=== PATIENT | male | born 1940 | race Caucasian/White ===

== ENCOUNTER 2017-12-06 08:41 | Inpatient (IN) | payer OTHER ==
[2017-12-06] MEDS: IV NORMAL SALINE 1000ML BAG 1,000 ML IV ×3 (09:25→18:31)
[2017-12-06 09:30] LABS: BASO # 0.1 x10^3/uL (0.0-0.2); BASO % 0 % (0-3); EOS % 0 % (0-3); HEMATOCRIT 38.3 % (39.0-53.0); HEMOGLOBIN 12.8 g/dL (13.0-17.5); LYMPH # 0.8 x10^3/uL (1.0-4.8); LYMPH % 4 % (24-48); MEAN CORPUSCULAR HEMOGLOBIN 32 pg (25-35); MEAN CORPUSCULAR HGB CONC 33 g/dL (31-37); MEAN CORPUSCULAR VOLUME 95 fL (79-100); MONO % 6 % (0-9); NEUT # 15.4 x10^3uL (1.8-7.7); NEUT % 90 % (31-73); PLATELET COUNT 121 x10^3/uL (140-400); RED BLOOD COUNT 4.04 x10^6/uL (4.30-5.70); RED CELL DISTRIBUTION WIDTH 14.7 % (11.5-14.5); WHITE BLOOD COUNT 17.2 x10^3/uL (4.0-11.0)
[2017-12-06 09:35] LABS: ADD MAN DIFF? YES
[2017-12-06 09:38] LABS: ANION GAP 5 (6-14); BLOOD UREA NITROGEN 26 mg/dL (8-26); BUN/CREATININE RATIO 20 (6-20); CALCIUM 9.5 mg/dL (8.5-10.1); CARBON DIOXIDE 30 mmol/L (21-32); CHLORIDE 105 mmol/L (98-107); CREATININE 1.3 mg/dL (0.7-1.3); GFR 53.3; GLUCOSE 169 mg/dL (70-99); POTASSIUM 4.2 mmol/L (3.5-5.1); SODIUM 140 mmol/L (136-145)
[2017-12-06 09:44] LABS: ALBUMIN 3.5 g/dL (3.4-5.0); ALK PHOS 56 U/L (46-116); ALT (SGPT) 31 U/L (16-63); AST (SGOT) 47 U/L (15-37); LIPASE 61 U/L (73-393); MAGNESIUM 1.8 mg/dL (1.8-2.4); TOTAL BILIRUBIN 1.8 mg/dL (0.2-1.0); TOTAL PROTEIN 6.9 g/dL (6.4-8.2)
[2017-12-06 09:46] LABS: TROPONINI 0.049 ng/mL (0.000-0.055)
[2017-12-06 09:52] LABS: CKMB MASS 2.5 ng/mL (0.0-3.6)
[2017-12-06 09:54] LABS: CKMB INDEX 0.1 % (0-4); CREATINE KINASE 1859 U/L (39-308)
[2017-12-06 10:00] LABS: INFLUENZA A PATIENT NEGATIVE (NEGATIVE); INFLUENZA B PATIENT NEGATIVE (NEGATIVE); OBC FLU VALID
[2017-12-06] MEDS ORDERED: CONTRAST GIVEN MC (11:00)
[2017-12-06] MEDS: FUROSEMIDE 20 MG/2 ML VIAL. IVP (11:18)
[2017-12-06] MEDS: IOHEXOL 300 MG/ML 100ML VIAL. IV (11:23)
[2017-12-06 11:47] LABS: % BANDS 17 % (0-9); % LYMPHS 1 % (24-48); % MONOS 7 % (0-10); % SEGS 75 % (35-66)
[2017-12-06 11:49] LABS: PLT ESTIMATE DECREASED (ADEQUATE)
[2017-12-06 12:17] LABS: BILIRUBIN,URINE NEGATIVE (NEG); CLARITY,URINE CLEAR; COLOR,URINE YELLOW; GLUCOSE,URINE NEGATIVE (NEG); NITRITE,URINE NEGATIVE (NEG); PH,URINE 5.5; PROTEIN,URINE NEGATIVE (NEG-TRACE)
[2017-12-06 12:50] LABS: BACTERIA,URINE 0 /HPF (0-FEW); RBC,URINE OCC /HPF (0-2); SQUAMOUS EPITHELIAL CELL,UR OCC /LPF; WBC,URINE OCC /HPF (0-4)
[2017-12-06] MEDS ORDERED: ONDANSETRON PF 4 MG/2 ML VIAL. IV ×2 (13:30→16:00)
[2017-12-06] MEDS ORDERED: DEXTROSE 50% 25 GM / 50ML DISP.SYRIN. IV (16:00)
[2017-12-06] MEDS ORDERED: hydrALAZINE 20 MG/ML VIAL. IVP (16:00)
[2017-12-06] MEDS ORDERED: traMADol 50 MG TABLET PO (16:00)
[2017-12-06] MEDS ORDERED: MORPHINE SULFATE 4 MG/ML DISP.SYRIN. IV (16:00)
[2017-12-06] MEDS: INSULIN ASPART 300 UNITS/3 ML INSULN.PEN SQ (17:00)
[2017-12-06] MEDS: ENOXAPARIN 40 MG/0.4 ML SYRINGE. SQ (18:32)
[2017-12-06 20:52] LABS: POC GLUCOSE 132 mg/dL (70-99)
[2017-12-06] MEDS ORDERED: metFORMIN 500 MG TABLET PO (21:00)
[2017-12-06] MEDS: LABETALOL HCL 200 MG TABLET PO (21:35)
[2017-12-06 22:28] LABS: INR 1.7 (0.8-1.1); PROTHROMBIN TIME PATIENT 18.7 SEC (11.7-14.0)
[2017-12-06] MEDS: ACETAMINOPHEN 325 MG TABLET. PO (23:21)
[2017-12-06] MEDS ORDERED: PIP/TAZO PER PHARMACY MC (23:30)
[2017-12-07] MEDS: IPRATRPIUM/ALBUTEROL 0.5/2.5MG 3 ML NEBU. NEB ×5 (00:07→19:59)
[2017-12-07] MEDS: MEROPENEM 500 MG in IV NORMAL SALINE 50ML 50 ML IV ×5 (00:10→23:45)
[2017-12-07] MEDS: VANCOMYCIN 2 GM in IV DEXTROSE 5 %-0.2 % NACL 500 ML IV (00:10)
[2017-12-07] MEDS: VANCOMYCIN PER PHARMACY MC ×2 (02:41→17:43)
[2017-12-07 06:36] LABS: ADD MAN DIFF? NO
[2017-12-07 06:43] LABS: BASO % 0 % (0-3); EOS % 0 % (0-3); HEMOGLOBIN 12.1 g/dL (13.0-17.5); LYMPH # 0.7 x10^3/uL (1.0-4.8); LYMPH % 7 % (24-48); MEAN CORPUSCULAR HEMOGLOBIN 32 pg (25-35); MEAN CORPUSCULAR HGB CONC 34 g/dL (31-37); MEAN CORPUSCULAR VOLUME 95 fL (79-100); MONO # 0.9 x10^3/uL (0.0-1.1); MONO % 8 % (0-9); NEUT # 8.8 x10^3uL (1.8-7.7); NEUT % 84 % (31-73); PLATELET COUNT 105 x10^3/uL (140-400); RED BLOOD COUNT 3.79 x10^6/uL (4.30-5.70); RED CELL DISTRIBUTION WIDTH 15.2 % (11.5-14.5); WHITE BLOOD COUNT 10.4 x10^3/uL (4.0-11.0)
[2017-12-07 06:53] LABS: ANION GAP 12 (6-14); BLOOD UREA NITROGEN 29 mg/dL (8-26); CALCIUM 8.6 mg/dL (8.5-10.1); CARBON DIOXIDE 27 mmol/L (21-32); CHLORIDE 104 mmol/L (98-107); CREATININE 1.4 mg/dL (0.7-1.3); GFR 48.9; GLUCOSE 133 mg/dL (70-99); POTASSIUM 3.7 mmol/L (3.5-5.1); SODIUM 143 mmol/L (136-145)
[2017-12-07 07:19] LABS: POC GLUCOSE 115 mg/dL (70-99)
[2017-12-07] MEDS: INSULIN ASPART 300 UNITS/3 ML INSULN.PEN SQ ×5 (08:00→21:47)
[2017-12-07] MEDS: DOCUSATE SODIUM 100 MG CAPSULE. PO (08:28)
[2017-12-07] MEDS: CYANOCOBALAMIN (VITAMIN B-12) 100 MCG TABLET PO (08:28)
[2017-12-07] MEDS: FUROSEMIDE 20 MG TABLET PO (08:29)
[2017-12-07] MEDS: LABETALOL HCL 200 MG TABLET PO ×2 (08:29→21:00)
[2017-12-07] MEDS: ASPIRIN CHEWABLE 81 MG TABLET. PO (08:30)
[2017-12-07] MEDS: LACTOBACILLUS RHAMNOSUS GG 1 CAPSULE. PO ×2 (08:30→21:30)
[2017-12-07] MEDS: LISINOPRIL 20 MG TABLET PO (08:30)
[2017-12-07 11:40] LABS: THYROID STIM HORMONE (TSH) 3.592 uIU/mL (0.358-3.74)
[2017-12-07 12:36] LABS: CHOLESTEROL 131 mg/dL (0-200); HDLC 31 mg/dL (40-60); LDLC 73 mg/dL (0-100); NON-HDL CHOLESTEROL 100 mg/dL (0-129); TRIGLYCERIDES 137 mg/dL (0-150); VLDLC 27 mg/dL (0-40)
[2017-12-07 12:37] LABS: CHOLESTEROL/HDL RATIO 4.2
[2017-12-07 12:46] LABS: LACTIC ACID 2.4 mmol/L (0.4-2.0)
[2017-12-07 12:52] LABS: POC GLUCOSE 151 mg/dL (70-99)
[2017-12-07] MEDS ORDERED: WARFARIN 7.5 MG TABLET. PO (16:00)
[2017-12-07 16:16] LABS: POC GLUCOSE 169 mg/dL (70-99)
[2017-12-07] MEDS: ACETAMINOPHEN 325 MG TABLET. PO (17:41)
[2017-12-07] MEDS: ENOXAPARIN 40 MG/0.4 ML SYRINGE. SQ (17:54)
[2017-12-07] MEDS: WARFARIN 7.5 MG TABLET. PO (17:55)
[2017-12-07 20:19] LABS: POC GLUCOSE 152 mg/dL (70-99)
[2017-12-07] MEDS: VANCOMYCIN 1.5 GM in IV DEXTROSE 5 %-0.2 % NACL 500 ML IV (22:29)
[2017-12-08 05:09] LABS: INR 1.6 (0.8-1.1); PROTHROMBIN TIME PATIENT 18.4 SEC (11.7-14.0)
[2017-12-08 05:22] LABS: ANION GAP 10 (6-14); BLOOD UREA NITROGEN 38 mg/dL (8-26); CALCIUM 8.6 mg/dL (8.5-10.1); CARBON DIOXIDE 27 mmol/L (21-32); CHLORIDE 102 mmol/L (98-107); CREATININE 1.5 mg/dL (0.7-1.3); GFR 45.1; GLUCOSE 133 mg/dL (70-99); MAGNESIUM 2.2 mg/dL (1.8-2.4); POTASSIUM 3.3 mmol/L (3.5-5.1); SODIUM 139 mmol/L (136-145)
[2017-12-08] MEDS: MEROPENEM 500 MG in IV NORMAL SALINE 50ML 50 ML IV ×3 (05:29→17:31)
[2017-12-08 05:36] LABS: CREATINE KINASE 1258 U/L (39-308)
[2017-12-08] MEDS: IPRATRPIUM/ALBUTEROL 0.5/2.5MG 3 ML NEBU. NEB ×4 (07:40→19:50)
[2017-12-08] MEDS: INSULIN ASPART 300 UNITS/3 ML INSULN.PEN SQ ×3 (08:00→17:39)
[2017-12-08 08:06] LABS: POC GLUCOSE 131 mg/dL (70-99)
[2017-12-08] MEDS: LISINOPRIL 20 MG TABLET PO (08:31)
[2017-12-08] MEDS: ASPIRIN CHEWABLE 81 MG TABLET. PO (08:31)
[2017-12-08] MEDS: CYANOCOBALAMIN (VITAMIN B-12) 100 MCG TABLET PO (08:31)
[2017-12-08] MEDS: LACTOBACILLUS RHAMNOSUS GG 1 CAPSULE. PO ×2 (08:31→21:25)
[2017-12-08] MEDS: LABETALOL HCL 200 MG TABLET PO ×2 (08:32→21:25)
[2017-12-08 11:24] LABS: POC GLUCOSE 175 mg/dL (70-99)
[2017-12-08] MEDS: VANCOMYCIN PER PHARMACY MC (14:09)
[2017-12-08] MEDS: POTASSIUM CHLORIDE 20 MEQ TABLET.ER. PO ×2 (14:58→17:00)
[2017-12-08] MEDS: IV NORMAL SALINE 1000ML BAG 1,000 ML IV (14:58)
[2017-12-08] MEDS ORDERED: WARFARIN 5 MG TABLET. PO (16:00)
[2017-12-08 16:36] LABS: POC GLUCOSE 158 mg/dL (70-99)
[2017-12-08] MEDS: ENOXAPARIN 40 MG/0.4 ML SYRINGE. SQ (17:31)
[2017-12-08] MEDS: WARFARIN 3 MG TABLET. PO (17:32)
[2017-12-08] MEDS ORDERED: ONDANSETRON ODT 4 MG TAB.RAPDIS. PO (19:30)
[2017-12-08] MEDS ORDERED: ONDANSETRON PF 4 MG/2 ML VIAL. IV (19:30)
[2017-12-08 22:42] LABS: VANC TR 11.7 mcg/mL (10.0-20.0)
[2017-12-08] MEDS: VANCOMYCIN 1.5 GM in IV DEXTROSE 5 %-0.2 % NACL 500 ML IV (22:57)
[2017-12-09] MEDS: VANCOMYCIN PER PHARMACY MC (00:05)
[2017-12-09 00:19] LABS: POC GLUCOSE 126 mg/dL (70-99)
[2017-12-09] MEDS: MEROPENEM 500 MG in IV NORMAL SALINE 50ML 50 ML IV ×5 (01:22→23:33)
[2017-12-09 05:07] LABS: ADD MAN DIFF? NO
[2017-12-09 05:19] LABS: BASO % 0 % (0-3); EOS # 0.8 x10^3/uL (0.0-0.7); EOS % 12 % (0-3); HEMATOCRIT 35.7 % (39.0-53.0); HEMOGLOBIN 12.1 g/dL (13.0-17.5); LYMPH # 0.9 x10^3/uL (1.0-4.8); LYMPH % 14 % (24-48); MEAN CORPUSCULAR HEMOGLOBIN 32 pg (25-35); MEAN CORPUSCULAR HGB CONC 34 g/dL (31-37); MEAN CORPUSCULAR VOLUME 94 fL (79-100); MONO # 0.7 x10^3/uL (0.0-1.1); MONO % 11 % (0-9); NEUT % 62 % (31-73); PLATELET COUNT 142 x10^3/uL (140-400); RED BLOOD COUNT 3.79 x10^6/uL (4.30-5.70); WHITE BLOOD COUNT 6.5 x10^3/uL (4.0-11.0)
[2017-12-09 05:30] LABS: INR 1.8 (0.8-1.1); PROTHROMBIN TIME PATIENT 19.8 SEC (11.7-14.0)
[2017-12-09 05:50] LABS: ANION GAP 12 (6-14); BLOOD UREA NITROGEN 34 mg/dL (8-26); CALCIUM 8.5 mg/dL (8.5-10.1); CARBON DIOXIDE 24 mmol/L (21-32); CHLORIDE 104 mmol/L (98-107); CREATINE KINASE 996 U/L (39-308); CREATININE 1.2 mg/dL (0.7-1.3); GFR 58.4; GLUCOSE 145 mg/dL (70-99); POTASSIUM 4.3 mmol/L (3.5-5.1); SODIUM 140 mmol/L (136-145)
[2017-12-09] MEDS: IPRATRPIUM/ALBUTEROL 0.5/2.5MG 3 ML NEBU. NEB ×4 (07:14→19:53)
[2017-12-09] MEDS: INSULIN ASPART 300 UNITS/3 ML INSULN.PEN SQ ×3 (08:00→17:04)
[2017-12-09 08:09] LABS: POC GLUCOSE 127 mg/dL (70-99)
[2017-12-09] MEDS: ASPIRIN CHEWABLE 81 MG TABLET. PO (08:52)
[2017-12-09] MEDS: CYANOCOBALAMIN (VITAMIN B-12) 100 MCG TABLET PO (08:52)
[2017-12-09] MEDS: LABETALOL HCL 200 MG TABLET PO ×2 (08:54→21:17)
[2017-12-09] MEDS: LISINOPRIL 20 MG TABLET PO (08:54)
[2017-12-09] MEDS: LACTOBACILLUS RHAMNOSUS GG 1 CAPSULE. PO ×2 (08:57→21:16)
[2017-12-09 11:58] LABS: POC GLUCOSE 149 mg/dL (70-99)
[2017-12-09] MEDS: WARFARIN 3 MG TABLET. PO (17:00)
[2017-12-09 20:39] LABS: POC GLUCOSE 158 mg/dL (70-99)
[2017-12-09 20:55] LABS: POC GLUCOSE 155 mg/dL (70-99)
[2017-12-10] MEDS: VANCOMYCIN 1.5 GM in IV DEXTROSE 5 %-0.2 % NACL 500 ML IV ×2 (00:09→18:19)
[2017-12-10 05:56] LABS: ADD MAN DIFF? NO
[2017-12-10 06:21] LABS: ALBUMIN 2.8 g/dL (3.4-5.0); ALBUMIN/GLOBULIN RATIO 0.8 (1.0-1.7); ALK PHOS 48 U/L (46-116); ALT (SGPT) 39 U/L (16-63); AST (SGOT) 42 U/L (15-37); BLOOD UREA NITROGEN 26 mg/dL (8-26); BUN/CREATININE RATIO 26 (6-20); CALCIUM 8.5 mg/dL (8.5-10.1); CARBON DIOXIDE 25 mmol/L (21-32); GFR 72.1; GLUCOSE 159 mg/dL (70-99); TOTAL BILIRUBIN 0.4 mg/dL (0.2-1.0); TOTAL PROTEIN 6.2 g/dL (6.4-8.2)
[2017-12-10 06:30] LABS: ANION GAP 9 (6-14); CHLORIDE 106 mmol/L (98-107); POTASSIUM 4.3 mmol/L (3.5-5.1); SODIUM 140 mmol/L (136-145)
[2017-12-10 06:30] LABS: CREATINE KINASE 611 U/L (39-308)
[2017-12-10 06:33] LABS: BASO % 0 % (0-3); EOS # 0.7 x10^3/uL (0.0-0.7); EOS % 12 % (0-3); HEMATOCRIT 33.7 % (39.0-53.0); HEMOGLOBIN 11.4 g/dL (13.0-17.5); LYMPH # 0.7 x10^3/uL (1.0-4.8); LYMPH % 13 % (24-48); MEAN CORPUSCULAR HEMOGLOBIN 32 pg (25-35); MEAN CORPUSCULAR HGB CONC 34 g/dL (31-37); MEAN CORPUSCULAR VOLUME 95 fL (79-100); MONO # 0.6 x10^3/uL (0.0-1.1); MONO % 10 % (0-9); NEUT # 3.6 x10^3uL (1.8-7.7); NEUT % 65 % (31-73); PLATELET COUNT 133 x10^3/uL (140-400); RED BLOOD COUNT 3.57 x10^6/uL (4.30-5.70); WHITE BLOOD COUNT 5.5 x10^3/uL (4.0-11.0)
[2017-12-10] MEDS: MEROPENEM 500 MG in IV NORMAL SALINE 50ML 50 ML IV ×3 (06:39→17:03)
[2017-12-10 06:54] LABS: INR 2.5 (0.8-1.1); PROTHROMBIN TIME PATIENT 25.3 SEC (11.7-14.0)
[2017-12-10] MEDS: IPRATRPIUM/ALBUTEROL 0.5/2.5MG 3 ML NEBU. NEB ×5 (07:34→22:20)
[2017-12-10 07:49] LABS: POC GLUCOSE 145 mg/dL (70-99)
[2017-12-10] MEDS: INSULIN ASPART 300 UNITS/3 ML INSULN.PEN SQ ×4 (08:00→22:35)
[2017-12-10] MEDS: ASPIRIN CHEWABLE 81 MG TABLET. PO (08:14)
[2017-12-10] MEDS: CYANOCOBALAMIN (VITAMIN B-12) 100 MCG TABLET PO (08:14)
[2017-12-10] MEDS: LACTOBACILLUS RHAMNOSUS GG 1 CAPSULE. PO ×2 (08:14→22:30)
[2017-12-10] MEDS: LABETALOL HCL 200 MG TABLET PO ×2 (08:15→22:30)
[2017-12-10] MEDS: LISINOPRIL 20 MG TABLET PO (08:15)
[2017-12-10] MEDS: guaiFENesin DM 200MG/20MG 10 ML SYRUP PO (08:44)
[2017-12-10] MEDS: BUDESONIDE 0.5 MG/2 ML NEBU. NEB ×2 (09:00→19:11)
[2017-12-10] MEDS: FUROSEMIDE 40 MG/4 ML VIAL. IVP (10:44)
[2017-12-10] MEDS: methylPREDNISolone SOD SUCC PF 125 MG/2 ML VIAL. IV ×3 (10:45→22:31)
[2017-12-10 11:17] LABS: POC GLUCOSE 167 mg/dL (70-99)
[2017-12-10] MEDS: VANCOMYCIN PER PHARMACY MC ×4 (11:26→11:51)
[2017-12-10 16:49] LABS: POC GLUCOSE 251 mg/dL (70-99)
[2017-12-10] MEDS ORDERED: MINERAL OIL/PETROLATUM,WHITE OPHTH OINT 3.5GM TUBE. OU (17:00)
[2017-12-10] MEDS: WARFARIN 4 MG TABLET. PO (17:03)
[2017-12-10] MEDS: POLYVINYL ALCOHOL 1.4% OPHTH SOLUTION 15ML BOTTLE. OU (18:18)
[2017-12-10 21:38] LABS: POC GLUCOSE 231 mg/dL (70-99)
[2017-12-11] MEDS: MEROPENEM 500 MG in IV NORMAL SALINE 50ML 50 ML IV ×4 (00:19→16:39)
[2017-12-11] MEDS: IPRATRPIUM/ALBUTEROL 0.5/2.5MG 3 ML NEBU. NEB ×5 (03:23→19:22)
[2017-12-11 05:21] LABS: ADD MAN DIFF? NO
[2017-12-11 05:27] LABS: BASO % 0 % (0-3); EOS % 0 % (0-3); HEMATOCRIT 32.9 % (39.0-53.0); HEMOGLOBIN 11.2 g/dL (13.0-17.5); LYMPH # 0.4 x10^3/uL (1.0-4.8); LYMPH % 8 % (24-48); MEAN CORPUSCULAR HEMOGLOBIN 32 pg (25-35); MEAN CORPUSCULAR HGB CONC 34 g/dL (31-37); MEAN CORPUSCULAR VOLUME 93 fL (79-100); MONO # 0.2 x10^3/uL (0.0-1.1); MONO % 3 % (0-9); NEUT # 4.5 x10^3uL (1.8-7.7); NEUT % 88 % (31-73); PLATELET COUNT 144 x10^3/uL (140-400); RED BLOOD COUNT 3.53 x10^6/uL (4.30-5.70); RED CELL DISTRIBUTION WIDTH 14.3 % (11.5-14.5); WHITE BLOOD COUNT 5.2 x10^3/uL (4.0-11.0)
[2017-12-11 05:32] LABS: INR 3.1 (0.8-1.1); PROTHROMBIN TIME PATIENT 29.9 SEC (11.7-14.0)
[2017-12-11 05:52] LABS: ALBUMIN 2.8 g/dL (3.4-5.0); ALBUMIN/GLOBULIN RATIO 0.8 (1.0-1.7); ALK PHOS 53 U/L (46-116); ALT (SGPT) 49 U/L (16-63); ANION GAP 10 (6-14); AST (SGOT) 47 U/L (15-37); BLOOD UREA NITROGEN 29 mg/dL (8-26); BUN/CREATININE RATIO 32 (6-20); CALCIUM 8.9 mg/dL (8.5-10.1); CARBON DIOXIDE 23 mmol/L (21-32); CHLORIDE 106 mmol/L (98-107); CREATININE 0.9 mg/dL (0.7-1.3); GFR 81.4; GLUCOSE 210 mg/dL (70-99); SODIUM 139 mmol/L (136-145); TOTAL BILIRUBIN 0.4 mg/dL (0.2-1.0); TOTAL PROTEIN 6.2 g/dL (6.4-8.2)
[2017-12-11] MEDS: methylPREDNISolone SOD SUCC PF 125 MG/2 ML VIAL. IV ×2 (06:03→14:00)
[2017-12-11] MEDS: BUDESONIDE 0.5 MG/2 ML NEBU. NEB ×2 (07:41→19:22)
[2017-12-11 07:48] LABS: POC GLUCOSE 185 mg/dL (70-99)
[2017-12-11] MEDS: CYANOCOBALAMIN (VITAMIN B-12) 100 MCG TABLET PO (09:20)
[2017-12-11] MEDS: ASPIRIN CHEWABLE 81 MG TABLET. PO (09:20)
[2017-12-11] MEDS: LABETALOL HCL 200 MG TABLET PO ×2 (09:21→20:43)
[2017-12-11] MEDS: LACTOBACILLUS RHAMNOSUS GG 1 CAPSULE. PO ×2 (09:21→20:42)
[2017-12-11] MEDS: LISINOPRIL 20 MG TABLET PO (09:21)
[2017-12-11] MEDS: INSULIN ASPART 300 UNITS/3 ML INSULN.PEN SQ ×3 (09:30→16:41)
[2017-12-11 11:25] LABS: POC GLUCOSE 230 mg/dL (70-99)
[2017-12-11] MEDS: VANCOMYCIN 1.5 GM in IV DEXTROSE 5 %-0.2 % NACL 500 ML IV (14:35)
[2017-12-11] MEDS: WARFARIN 3 MG TABLET. PO (15:39)
[2017-12-11 16:12] LABS: POC GLUCOSE 280 mg/dL (70-99)
[2017-12-11 21:38] LABS: POC GLUCOSE 153 mg/dL (70-99)
[2017-12-12] MEDS: MEROPENEM 500 MG in IV NORMAL SALINE 50ML 50 ML IV ×3 (00:23→12:32)
[2017-12-12] MEDS: IPRATRPIUM/ALBUTEROL 0.5/2.5MG 3 ML NEBU. NEB ×7 (04:00→23:48)
[2017-12-12 05:41] LABS: INR 4.3 (0.8-1.1); PROTHROMBIN TIME PATIENT 38.6 SEC (11.7-14.0)
[2017-12-12 05:42] LABS: VANC TR 16.1 mcg/mL (10.0-20.0)
[2017-12-12] MEDS: VANCOMYCIN PER PHARMACY MC ×2 (06:01→06:05)
[2017-12-12] MEDS: VANCOMYCIN 1.5 GM in IV DEXTROSE 5 %-0.2 % NACL 500 ML IV (06:31)
[2017-12-12] MEDS: BUDESONIDE 0.5 MG/2 ML NEBU. NEB ×2 (07:46→19:24)
[2017-12-12 07:48] LABS: POC GLUCOSE 146 mg/dL (70-99)
[2017-12-12] MEDS: INSULIN ASPART 300 UNITS/3 ML INSULN.PEN SQ ×4 (08:00→22:05)
[2017-12-12] MEDS: LACTOBACILLUS RHAMNOSUS GG 1 CAPSULE. PO ×2 (08:55→20:31)
[2017-12-12] MEDS: CYANOCOBALAMIN (VITAMIN B-12) 100 MCG TABLET PO (08:56)
[2017-12-12] MEDS: LABETALOL HCL 200 MG TABLET PO ×2 (08:56→20:31)
[2017-12-12] MEDS: LISINOPRIL 20 MG TABLET PO (08:56)
[2017-12-12] MEDS: ASPIRIN CHEWABLE 81 MG TABLET. PO (08:56)
[2017-12-12] MEDS: methylPREDNISolone SOD SUCC PF 125 MG/2 ML VIAL. IV (08:57)
[2017-12-12 12:06] LABS: POC GLUCOSE 185 mg/dL (70-99)
[2017-12-12 15:49] LABS: POC GLUCOSE 232 mg/dL (70-99)
[2017-12-12 21:22] LABS: POC GLUCOSE 217 mg/dL (70-99)
[2017-12-13] MEDS: IPRATRPIUM/ALBUTEROL 0.5/2.5MG 3 ML NEBU. NEB ×4 (04:16→15:17)
[2017-12-13 04:48] LABS: ADD MAN DIFF? NO
[2017-12-13 05:07] LABS: BASO % 0 % (0-3); EOS % 0 % (0-3); HEMATOCRIT 31.7 % (39.0-53.0); HEMOGLOBIN 10.6 g/dL (13.0-17.5); LYMPH # 0.8 x10^3/uL (1.0-4.8); LYMPH % 10 % (24-48); MEAN CORPUSCULAR HEMOGLOBIN 32 pg (25-35); MEAN CORPUSCULAR HGB CONC 33 g/dL (31-37); MEAN CORPUSCULAR VOLUME 95 fL (79-100); MONO # 0.8 x10^3/uL (0.0-1.1); MONO % 10 % (0-9); NEUT # 6.5 x10^3uL (1.8-7.7); NEUT % 80 % (31-73); PLATELET COUNT 202 x10^3/uL (140-400); RED BLOOD COUNT 3.34 x10^6/uL (4.30-5.70); RED CELL DISTRIBUTION WIDTH 15.1 % (11.5-14.5); WHITE BLOOD COUNT 8.1 x10^3/uL (4.0-11.0)
[2017-12-13 05:15] LABS: INR 4.4 (0.8-1.1); PROTHROMBIN TIME PATIENT 39.1 SEC (11.7-14.0)
[2017-12-13 05:50] LABS: ANION GAP 8 (6-14); BLOOD UREA NITROGEN 30 mg/dL (8-26); CALCIUM 9.2 mg/dL (8.5-10.1); CARBON DIOXIDE 27 mmol/L (21-32); CHLORIDE 108 mmol/L (98-107); CREATININE 0.9 mg/dL (0.7-1.3); GFR 81.4; GLUCOSE 137 mg/dL (70-99); POTASSIUM 4.6 mmol/L (3.5-5.1); SODIUM 143 mmol/L (136-145)
[2017-12-13] MEDS: BUDESONIDE 0.5 MG/2 ML NEBU. NEB (07:14)
[2017-12-13 07:38] LABS: POC GLUCOSE 109 mg/dL (70-99)
[2017-12-13] MEDS: INSULIN ASPART 300 UNITS/3 ML INSULN.PEN SQ ×2 (08:00→12:11)
[2017-12-13] MEDS: ASPIRIN CHEWABLE 81 MG TABLET. PO (08:20)
[2017-12-13] MEDS: LISINOPRIL 20 MG TABLET PO (08:20)
[2017-12-13] MEDS: CYANOCOBALAMIN (VITAMIN B-12) 100 MCG TABLET PO (08:20)
[2017-12-13] MEDS: LACTOBACILLUS RHAMNOSUS GG 1 CAPSULE. PO (08:20)
[2017-12-13] MEDS: LABETALOL HCL 200 MG TABLET PO (08:20)
[2017-12-13] MEDS: methylPREDNISolone SOD SUCC PF 125 MG/2 ML VIAL. IV (08:21)
[2017-12-13 11:37] LABS: POC GLUCOSE 188 mg/dL (70-99)
== END 2017-12-13 16:19 | disposition home or self-care (01) | DRG 871 ==
LOC: ER 08:41 → 4 NORTH 12:57
DX: A41.9 Sepsis, unspecified organism (principal); G93.41 Metabolic encephalopathy; J96.01 Acute respiratory failure with hypoxia; N17.9 Acute kidney failure, unspecified; J18.9 Pneumonia, unspecified organism; I27.20 Pulmonary hypertension, unspecified; I13.0 Hypertensive heart and chronic kidney disease with heart failure and stage 1 through stage 4 chronic kidney disease, or unspecified chronic kidney disease; E11.22 Type 2 diabetes mellitus with diabetic chronic kidney disease; E66.01 Morbid (severe) obesity due to excess calories; I50.22 Chronic systolic (congestive) heart failure; I42.9 Cardiomyopathy, unspecified; M62.82 Rhabdomyolysis; J44.0 Chronic obstructive pulmonary disease with (acute) lower respiratory infection; J44.1 Chronic obstructive pulmonary disease with (acute) exacerbation; W18.39XA Other fall on same level, initial encounter; E86.0 Dehydration; I48.0 Paroxysmal atrial fibrillation; B34.9 Viral infection, unspecified; Z88.0 Allergy status to penicillin; Z88.8 Allergy status to other drugs, medicaments and biological substances; E78.5 Hyperlipidemia, unspecified; M19.90 Unspecified osteoarthritis, unspecified site; E87.6 Hypokalemia; I25.10 Atherosclerotic heart disease of native coronary artery without angina pectoris; I70.0 Atherosclerosis of aorta; J98.01 Acute bronchospasm; K42.9 Umbilical hernia without obstruction or gangrene; K43.9 Ventral hernia without obstruction or gangrene; N18.3 Chronic kidney disease, stage 3 (moderate); Z79.01 Long term (current) use of anticoagulants; Z82.49 Family history of ischemic heart disease and other diseases of the circulatory system; Z87.891 Personal history of nicotine dependence; Z95.0 Presence of cardiac pacemaker; Z95.1 Presence of aortocoronary bypass graft; Y93.89 Activity, other specified; Y92.89 Other specified places as the place of occurrence of the external cause; Y99.8 Other external cause status
CPT/HCPCS: 36415; 70450; 71045; 71046; 74177; 80048; 80053; 80061; 80202; 81001; 82550; 82553; 82962; 83605; 83690; 83735; 84443; 84484; 85007; 85025; 85610; 87804; 87804-59; 93005; 93306; 94640; 94760; 96361; 96374; 97110-GO; 97110-GP; 97116-GP; 97162-GP; 97166-GO; 97530-GP; 97535-GO; 99285-25; J1650; J1815; J1940; J2185; J2930; J3370; J7030; J7620; J7626; Q9967

== ENCOUNTER → 2018-01-12 | Outpatient (CLI) | payer OTHER | END | disposition home or self-care (01) | LOC: ECHO 12:24 | DX: I13.0 Hypertensive heart and chronic kidney disease with heart failure and stage 1 through stage 4 chronic kidney disease, or unspecified chronic kidney disease (principal); E11.22 Type 2 diabetes mellitus with diabetic chronic kidney disease; I50.23 Acute on chronic systolic (congestive) heart failure; N18.3 Chronic kidney disease, stage 3 (moderate); I08.1 Rheumatic disorders of both mitral and tricuspid valves; I27.20 Pulmonary hypertension, unspecified | CPT/HCPCS: 93306 ==

== ENCOUNTER 2018-11-27 08:24 | Inpatient (IN) | payer OTHER ==
[~2018-11-27] VITALS: Ht 170.2 cm; Wt 102.2 kg
[~2018-11-27 08:24] MED LIST: ALBU2.5V8 INH; ASPI-482 PO; ASPI-630 AD; CYAN100T2 PO; DOXY100T PO; FURO-69 PO; FURO40TA4 PO; LABE200T4 PO; LISI-334 PO; LOVA40TA2 PO; METF500T16 PO; NIAC500T PO; TEST200V32 IM; WARF-31 PO; WARF7.5T45 PO
[2018-11-27] MEDS ORDERED: ACETAMINOPHEN 500 MG TABLET PO ONE (08:45)
[2018-11-27 08:57] LABS: BASO # 0.1 x10^3/uL (0.0-0.2); BASO % 0 % (0-3); EOS # 0.1 x10^3/uL (0.0-0.7); EOS % 0 % (0-3); HEMATOCRIT 38.3 % (39.0-53.0); HEMOGLOBIN 12.8 g/dL (13.0-17.5); LYMPH # 0.5 x10^3/uL (1.0-4.8); LYMPH % 2 % (24-48); MEAN CORPUSCULAR HEMOGLOBIN 32 pg (25-35); MEAN CORPUSCULAR HGB CONC 33 g/dL (31-37); MEAN CORPUSCULAR VOLUME 97 fL (79-100); MONO # 1.1 x10^3/uL (0.0-1.1); MONO % 5 % (0-9); NEUT # 19.9 x10^3uL (1.8-7.7); NEUT % 92 % (31-73); PLATELET COUNT 138 x10^3/uL (140-400); RED BLOOD COUNT 3.93 x10^6/uL (4.30-5.70); RED CELL DISTRIBUTION WIDTH 13.3 % (11.5-14.5); WHITE BLOOD COUNT 21.6 x10^3/uL (4.0-11.0)
[2018-11-27 09:06] LABS: CALCIUM 9.3 mg/dL (8.5-10.1); CREATININE 1.2 mg/dL (0.7-1.3); GFR 58.3
[2018-11-27 09:08] LABS: PROTHROMBIN TIME PATIENT 29.4 SEC (11.7-14.0)
[2018-11-27 09:12] LABS: ALBUMIN 3.2 g/dL (3.4-5.0); ALBUMIN/GLOBULIN RATIO 1.3 (1.0-1.7); TOTAL BILIRUBIN 1.3 mg/dL (0.2-1.0); TOTAL PROTEIN 5.6 g/dL (6.4-8.2)
[2018-11-27 09:18] LABS: CREATINE KINASE 42 U/L (39-308)
--- NOTE | 2018-11-27 09:24 | RAD ---
PORTABLE CHEST 1V History: COUGH, WEAKNESS, FEVER X1 DAY Comparison: November 15, 2018 Cardiac silhouette is stable, mildly enlarged in appearance. Pacemaker again identified. No evidence of pleural effusion. No evidence of pneumothorax. Aorta is tortuous. No focal airspace consolidation is identified. IMPRESSION: Stable exam, no consolidating infiltrate. Electronically signed by: German Lackey MD (11/27/2018 9:21 AM) [facility]
[2018-11-27 09:30] LABS: INFLUENZA A PATIENT NEGATIVE (NEGATIVE); INFLUENZA B PATIENT NEGATIVE (NEGATIVE)
[2018-11-27] MEDS ORDERED: VANCOMYCIN 2 GM in IV NORMAL SALINE 500ML BAG 500 ML IV ONE (09:30)
--- NOTE | 2018-11-27 09:36 | PHYS DOC ---
Past Medical History Past Medical History: Diabetes-Type II, High Cholesterol, Hypertension Past Surgical History: Pacemaker, Other Additional Past Surgical Histo: OPEN HEARTX2 , RIGHT SHOULDER, HEAD BLEED Alcohol Use: None Drug Use: None Adult General Chief Complaint Chief Complaint: FLU SYMPTOM HPI HPI Patient is a 78 year old male presented to the ER for evaluation of fever, chill, nonproductive cough and generalized weakness for a few day. Patient denied any chest pain or shortness of air. He felt like he has the flu. Patient also complains of right leg pain and redness, no recent travel or operation. Patient said he was admitted here recently. Review of Systems Review of Systems Constitutional: POSITIVE FOR fever AND chills , GENERALIZED WEAKNESS Eyes: Denies change in visual acuity, redness, or eye pain [] HENT: Denies nasal congestion or sore throat [] Respiratory: POSITIVE FOR cough AND shortness of breath [] Cardiovascular: NO CHEST PAIN GI: Denies abdominal pain, nausea, vomiting, bloody stools or diarrhea [] : Denies dysuria or hematuria [] Musculoskeletal: Denies back pain or joint pain [] Integument: Denies rash or skin lesions [] Neurologic: Denies headache, focal weakness or sensory changes [] Endocrine: Denies polyuria or polydipsia [] All other systems were reviewed and found to be within normal limits, except as documented in this note. Current Medications Current Medications Current Medications Medications (Trade) Dose Ordered Sig/Kimberley Start Time Stop Time Status Last Admin Dose Admin Acetaminophen (Tylenol) 1,000 mg 1X ONCE 11/27/18 08:45 11/27/18 08:46 DC 11/27/18 09:01 1,000 MG Vancomycin HCl (Vanco Per Pharmacy) 1 each PRN DAILY PRN 11/27/18 09:15 11/27/18 13:04 DC 11/27/18 12:45 1 EACH Vancomycin HCl 2 gm/Sodium Chloride 500 ml @ 250 mls/hr 1X ONCE 11/27/18 09:30 11/27/18 11:29 DC 11/27/18 09:51 250 MLS/HR Allergies Allergies Allergies Coded Allergies Type Severity Reaction Last Updated Verified Antihistamines - Alkylamine Allergy Intermediate 12/06/17 Yes Penicillins Allergy Intermediate Hives 09/11/15 Yes Physical Exam Physical Exam Constitutional: Well developed, well nourished, no acute distress, non-toxic appearance. [] HENT: Normocephalic, atraumatic, bilateral external ears normal, oropharynx moist, no oral exudates, nose normal. [] Eyes: PERRLA, EOMI, conjunctiva normal, no discharge. [] Neck: Normal range of motion, no tenderness, supple, no stridor. [] Cardiovascular:Heart rate regular rhythm, no murmur [] Lungs & Thorax: Bilateral breath sounds clear to auscultation [] Abdomen: Bowel sounds normal, soft, no tenderness, no masses, no pulsatile masses. [] Skin: Warm, dry, right leg is warm to touch with erythema consistent with cellulitis. No open wound. Back: No tenderness, no CVA tenderness. [] Extremities: No tenderness, no cyanosis, no clubbing, ROM intact, no edema. [] Neurologic: Alert and oriented X 3, normal motor function, normal sensory function, no focal deficits noted. [] Psychologic: Affect normal, judgement normal, mood normal. [] Current Patient Data Vital Signs Vital Signs Date Time Temp Pulse Resp B/P (MAP) Pulse Ox O2 Delivery O2 Flow Rate FiO2 11/27/18 09:48 60 20 101/60 (74) 93 Room Air 11/27/18 08:35 101.1 101.1 Lab Values Laboratory Tests Test 11/27/18 08:30 White Blood Count 21.6 x10^3/uL (4.0-11.0) H Red Blood Count 3.93 x10^6/uL (4.30-5.70) L Hemoglobin 12.8 g/dL (13.0-17.5) L Hematocrit 38.3 % (39.0-53.0) L Mean Corpuscular Volume 97 fL (79-100) Mean Corpuscular Hemoglobin 32 pg (25-35) Mean Corpuscular Hemoglobin Concent 33 g/dL (31-37) Red Cell Distribution Width 13.3 % (11.5-14.5) Platelet Count 138 x10^3/uL (140-400) L Neutrophils (%) (Auto) 92 % (31-73) H Lymphocytes (%) (Auto) 2 % (24-48) L Monocytes (%) (Auto) 5 % (0-9) Eosinophils (%) (Auto) 0 % (0-3) Basophils (%) (Auto) 0 % (0-3) Neutrophils # (Auto) 19.9 x10^3uL (1.8-7.7) H Lymphocytes # (Auto) 0.5 x10^3/uL (1.0-4.8) L Monocytes # (Auto) 1.1 x10^3/uL (0.0-1.1) Eosinophils # (Auto) 0.1 x10^3/uL (0.0-0.7) Basophils # (Auto) 0.1 x10^3/uL (0.0-0.2) Segmented Neutrophils % 73 % (35-66) H Band Neutrophils % 17 % (0-9) H Lymphocytes % 3 % (24-48) L Atypical Lymphocytes % (Manual) 2 % (0-0) H Monocytes % 4 % (0-10) Eosinophils % 1 % (0-5) Toxic Granulation Present Platelet Estimate Decreased (ADEQUATE) Large Platelets Occ Prothrombin Time 29.4 SEC (11.7-14.0) H Prothrombin Time INR 2.8 (0.8-1.1) H PTT 47 SEC (24-38) H Sodium Level 143 mmol/L (136-145) Potassium Level 4.0 mmol/L (3.5-5.1) Chloride Level 103 mmol/L (98-107) Carbon Dioxide Level 28 mmol/L (21-32) Anion Gap 12 (6-14) Blood Urea Nitrogen 32 mg/dL (8-26) H Creatinine 1.2 mg/dL (0.7-1.3) Estimated GFR (Cockcroft-Gault) 58.3 BUN/Creatinine Ratio 27 (6-20) H Glucose Level 169 mg/dL (70-99) H Lactic Acid Level 2.8 mmol/L (0.4-2.0) H Calcium Level 9.3 mg/dL (8.5-10.1) Total Bilirubin 1.3 mg/dL (0.2-1.0) H Aspartate Amino Transferase (AST) 21 U/L (15-37) Alanine Aminotransferase (ALT) 39 U/L (16-63) Alkaline Phosphatase 60 U/L (46-116) Creatine Kinase 42 U/L (39-308) Creatine Kinase MB (Mass) 1.2 ng/mL (0.0-3.6) Creatine Kinase MB Relative Index % (0-4) Troponin I Quantitative 0.079 ng/mL (0.000-0.055) GV-Oku-Q-Type Natriuretic Peptide 2587 pg/mL (0-449) H Total Protein 5.6 g/dL (6.4-8.2) L Albumin 3.2 g/dL (3.4-5.0) L Albumin/Globulin Ratio 1.3 (1.0-1.7) Influenza Type A Antigen Negative (NEGATIVE) Influenza Type B Antigen Negative (NEGATIVE) Laboratory Tests 11/27/18 08:30 Laboratory Tests 11/27/18 08:30 EKG EKG [] Radiology/Procedures Radiology/Procedures [][facility] [address] [place], [place] [id number] IMAGING REPORT Signed PATIENT: HOPE ARAIZA ACCOUNT: [id number] : 1940 LOCATION: ER AGE: 78 SEX: M EXAM STATUS: PRE ER ORD. PHYSICIAN: SHARON FRYE DO REASON: cough, fever PROCEDURE: PORTABLE CHEST 1V PORTABLE CHEST 1V History: COUGH, WEAKNESS, FEVER X1 DAY Comparison: November 15, 2018 Cardiac silhouette is stable, mildly enlarged in appearance. Pacemaker again identified. No evidence of pleural effusion. No evidence of pneumothorax. Aorta is tortuous. No focal airspace consolidation is identified. IMPRESSION: Stable exam, no consolidating infiltrate. Electronically signed by: German Lackey MD (11/27/2018 9:21 AM) [facility] DICTATED and SIGNED BY: GERMAN LACKEY MD DATE: 11/27/18916 Course & Med Decision Making Course & Med Decision Making Pertinent Labs and Imaging studies reviewed. (See chart for details) [] Dragon Disclaimer Dragon Disclaimer This electronic medical record was generated, in whole or in part, using a voice recognition dictation system. Departure Departure Impression: Primary Impression: Cellulitis of right leg Additional Impression: Sepsis Disposition: ADMITTED INPATIENT Admitting Physician: July Fuentes Condition: STABLE Referrals: KOLBY MALDONADO MD (PCP) Problem Qualifiers SHARON FRYE DO Nov 27, 2018 09:36
[2018-11-27] MEDS ORDERED: ONDANSETRON PF 4 MG/2 ML VIAL. IV PRN (10:15)
[2018-11-27 10:34] LABS: % ATYL 2 % (0-0); % BANDS 17 % (0-9); % EOS 1 % (0-5); % LYMPHS 3 % (24-48); % MONOS 4 % (0-10); % SEGS 73 % (35-66)
[2018-11-27 10:35] LABS: PLT ESTIMATE DECREASED (ADEQUATE); TOXIC GRANULATION PRESENT
--- NOTE | 2018-11-27 11:08 | EKG ---
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
[2018-11-27 11:09] VITALS: BP 89/41
[2018-11-27] MEDS: VANCOMYCIN PER PHARMACY MC PRN ×2 (12:41→12:45)
--- NOTE | 2018-11-27 12:44 | NUR ---
Pharmacy Vancomycin Dosing Note S:Consulted to monitor and dose vancomycin started 11/27/18. O:HOPE ARAIZA is a 78 year old M with Cellulitis Height: 5 feet, 7 inches Weight: 96.2 kg [place] Body Weight: 66.10 Adjusted Body Weight: 78.14 Dosing Weight: Actual Other Antibiotics: - LABS: Last BUN: 32 Last Creatinine: 1.2 Creatinine Clearance: 54 mL/min Last WBC: 21.6 Last Procalcitonin: Tmax (past 24 hours): 101.1 Last dose given 11/27/18 at 0951 Vancomycin Dosing: Loading Dose: 2000 mg x1 Dosing Weight: Actual Target Trough: 10-20 A: Based on: weight and renal function P: 1. Begin Vancomycin 1.5g IV q24h 2. Follow up Trough level on 11/29/18 at 0930 3. Pharmacy will continue to monitor, follow and adjust therapy as needed. Laura Kovacs German, 11/27/18 [id number]
[2018-11-27] MEDS ORDERED: VANCOMYCIN PER PHARMACY MC PRN (13:15)
[2018-11-27] MEDS ORDERED: ALBUTEROL SULFATE 2.5 MG/3 ML NEBU. INH PRN (13:45)
[2018-11-27] MEDS ORDERED: IV NORMAL SALINE 1000ML BAG 1,000 ML IV ONE (14:00)
[2018-11-27 15:15] VITALS: BP 90/41
[2018-11-27] MEDS ORDERED: WARFARIN 5 MG TABLET. PO ONE (16:00)
--- NOTE | 2018-11-27 17:00 | NUR ---
per Dr Fuentes- hold Warfarin tonight. pt explained that his PCP told him to hold warfarin till wednesday due to INR. non-administered warfarin. Jamin Rubio RN
--- NOTE | 2018-11-27 17:26 | PDOC1 ---
History and Physical Date of Admission Date of Admission DATE: 11/27/18 TIME: 17:23 Source Source: Chart review, Patient History of Present Illness History of Present Illness Mr. Morrell presented to the ER this AM complaining of chills and new weakness and had a fever. T 101.2 in thr ER, he is very tired, has a slight cough, no travel or sick contacts, no diarhea, no redness, he is compliant with meds, his coumadin clinic told him to hold his dose for a few days last week, takes coumadin for afib, eliquis was too expensive. he has been active and going well Past Medical History Cardiovascular: AFIB, CAD, HTN, Hyperlipidemia, Other Pulmonary: No pertinent hx CENTRAL NERVOUS SYSTEM: Other GI: Constipation Heme/Onc: Other Hepatobiliary: No pertinent hx Psych: No pertinent hx Musculoskeletal: Osteoarthritis Rheumatologic: No pertinent hx Infectious disease: No pertinent hx Renal/: No pertinent hx Endocrine: Diabetes Past Surgical History Past Surgical History: Pacemaker, CABG, Hernia Repair, Tonsillectomy Family History Family History: Coronary Artery Disease Social History Smoke: No ALCOHOL: none Drugs: None Current Problem List Problem List Problems Medical Problems: (1) Cellulitis of right leg Status: Acute (2) Sepsis Status: Acute Current Medications Current Medications Current Medications Acetaminophen (Tylenol) 1,000 mg 1X ONCE PO Last administered on 11/27/18at 09: 01; Start 11/27/18 at 08:45; Stop 11/27/18 at 08:46; Status DC Vancomycin HCl (Vanco Per Pharmacy) 1 each PRN DAILY PRN MC SEE COMMENTS Last administered on 11/27/18at 12:45; Start 11/27/18 at 09:15; Stop 11/27/18 at 13:04 ; Status DC Vancomycin HCl 2 gm/Sodium Chloride 500 ml @ 250 mls/hr 1X ONCE IV Last administered on 11/27/18at 09:51; Start 11/27/18 at 09:30; Stop 11/27/18 at 11:29 ; Status DC Ondansetron HCl (Zofran) 4 mg PRN Q8HRS PRN IV NAUSEA/VOMITING; Start 11/27/18 at 10:15; Stop 11/28/18 at 10:14 Vancomycin HCl 1.5 gm/Sodium Chloride 500 ml @ 250 mls/hr Q24H IV ; Start 11/28 at 10:00 Vancomycin HCl (Vancomycin Trough Level) 1 each 1X ONCE MC ; Start 11/29/18 at 09:30; Stop 11/29/18 at 09:31 Vancomycin HCl (Vanco Per Pharmacy) 1 each PRN DAILY PRN MC SEE COMMENTS; Start 11/27/18 at 13:15 Albuterol Sulfate (Ventolin Neb Soln) 2.5 mg PRN Q6HRS PRN INH SHORTNESS OF BREATH; Start 11/27/18 at 13:45 Aspirin (Ecotrin) 81 mg DAILY PO ; Start 11/28/18 at 09:00 Cyanocobalamin (Vitamin B-12) 100 mcg DAILY PO ; Start 11/28/18 at 09:00 Furosemide (Lasix) 40 mg DAILY PO ; Start 11/28/18 at 09:00 Lisinopril (Prinivil) 20 mg DAILY PO ; Start 11/28/18 at 09:00 Labetalol HCl (Trandate) 200 mg BID PO ; Start 11/27/18 at 21:00 Atorvastatin Calcium (Lipitor) 10 mg QHS PO ; Start 11/27/18 at 21:00 Warfarin Sodium (Coumadin) 5 mg 1X WARF ONCE PO ; Start 11/27/18 at 16:00; Stop 11/27/18 at 16:01; Status DC Warfarin Sodium (Coumadin Per Pharmacy) 1 each PRN DAILY PRN MC SEE COMMENTS Last administered on 11/27/18at 15:59; Start 11/27/18 at 13:45 Sodium Chloride 1,000 ml @ 125 mls/hr 1X ONCE IV Last administered on at 15:23; Start 11/27/18 at 14:00; Stop 11/27/18 at 21:59 Active Scripts Active Proair Hfa Inhaler (Albuterol Sulfate) 8.5 Gm Hfa.aer.ad 1 Puff INH PRN Q6HRS PRN 14 Days Doxycycline Hyclate 100 Mg Tablet 100 Mg PO BID MDD 1 Reported Warfarin Sodium 5 Mg Tablet 5 Mg PO DAILY Warfarin Sodium 7.5 Mg Tablet 7.5 Mg PO QTU Warfarin Sodium 5 Mg Tablet 5 Mg PO DAILY TAKES M,W,TH,FR, VERDUGO Warfarin Sodium 7.5 Mg Tablet 7.5 Mg PO QSA Furosemide 40 Mg Tablet 1 Tab PO DAILY Vitamin B-12 (Cyanocobalamin (Vitamin B-12)) 100 Mcg Tablet 100 Mcg PO Aspir 81 (Aspirin) 81 Mg Tablet.dr 81 Mg PO DAILY Lisinopril 20 Mg Tablet 20 Mg PO DAILY Labetalol Hcl 200 Mg Tablet 200 Mg PO BID Lovastatin 40 Mg Tablet 40 Mg PO BID Allergies Allergies: Coded Allergies: Antihistamines - Alkylamine (Verified Allergy, Intermediate, 12/06/17) Penicillins (Verified Allergy, Intermediate, Hives, 09/11/15) ROS General: YES: Chills, Fatigue, Malaise; No: Night Sweats, Appetite, Other PSYCHOLOGICAL ROS: No: Anxiety, Behavioral Disorder, Concentration difficultie , Decreased libido, Depression, Disorientation, Hallucinations, Hostility, Irritablity, Memory difficulties, Mood Swings, Obsessive thoughts, Physical abuse, Sexual abuse, Sleep disturbances, Suicidal ideation, Other Eyes: No Blurry vision, No Decreased vision, No Double vision, No Dry eyes, No Excessive tearing, No Eye Pain, No Itchy Eyes, No Loss of vision, No Photophobia , No Scotomata, No Uses contacts, No Uses glasses, No Other HEENT: No: Heacaches, Visual Changes, Hearing change, Nasal congestion, Nasal discharge, Oral lesions, Sinus pain, Sore Throat, Epistaxis, Sneezing, Snoring, Tinnitus, Vertigo, Vocal changes, Other Respiratory: No: Cough, Hemoptysis, Orthopnea, Pleuritic Pain, Shortness of breath, SOB with excertion, Sputum Changes, Stridor, Tachypnea, Wheezing, Other Cardiovascular: No Chest Pain, No Palpitations, No Orthopnea, No Paroxysmal Noc. Dyspnea, No Edema, No Lt Headedness, No Other Gastrointestinal: No Nausea, No Vomiting, No Abdominal Pain, No Diarrhea, No Constipation, No Melena, No Hematochezia, No Other Genitourinary: No Dysuria, No Frequency, No Incontinence, No Hematuria, No Retention, No Discharge, No Urgency, No Pain, No Flank Pain, No Other, No , No , No , No , No , No , No Musculoskeletal: No Gait Disturbance, No Joint Pain, No Joint Stiffness, No Joint Swelling, No Muscle Pain, No Muscular Weakness, No Pain In:, No Swelling In:, No Other Neurological: No Behavorial Changes, No Bowel/Bladder ControlChng, No Confusion , No Dizziness, No Gait Disturbance, No Headaches, No Impaired Coord/balance, No Memory Loss, No Numbness/Tingling, No Seizures, No Speech Problems, No Tremors, No Visual Changes, No Weakness, No Other Skin: Yes Dry Skin; No Eczema, No Hair Changes, No Lumps, No Mole Changes, No Mottling, No Nail Changes, No Pruritus, No Rash, No Skin Lesion Changes, No Other, No Acne Physical Exam General: Alert, Oriented X3, Cooperative, No acute distress HEENT: Atraumatic, EOMI, Mucous membr. moist/pink Lungs: Clear to auscultation, Normal air movement Heart: S1S2, no gallops Abdomen: Normal bowel sounds, Soft (obese, ), No tenderness Extremities: No cyanosis, No edema Skin: No rashes, No significant lesion Neuro: Normal speech, Normal tone, Cranial nerves 3-12 NL Psych/Mental Status: Mental status NL, Mood NL Vitals Vitals Vital Signs Date Time Temp Pulse Resp B/P (MAP) Pulse Ox O2 Delivery O2 Flow Rate FiO2 11/27/18 15:15 98.8 60 20 90/41 (57) 94 Room Air 98.8 Labs Labs Laboratory Tests Test 11/27/18 08:30 11/27/18 11:30 11/27/18 13:20 11/27/18 16:37 White Blood Count 21.6 x10^3/uL (4.0-11.0) Red Blood Count 3.93 x10^6/uL (4.30-5.70) Hemoglobin 12.8 g/dL (13.0-17.5) Hematocrit 38.3 % (39.0-53.0) Mean Corpuscular Volume 97 fL (79-100) Mean Corpuscular Hemoglobin 32 pg (25-35) Mean Corpuscular Hemoglobin Concent 33 g/dL (31-37) Red Cell Distribution Width 13.3 % (11.5-14.5) Platelet Count 138 x10^3/uL (140-400) Neutrophils (%) (Auto) 92 % (31-73) Lymphocytes (%) (Auto) 2 % (24-48) Monocytes (%) (Auto) 5 % (0-9) Eosinophils (%) (Auto) 0 % (0-3) Basophils (%) (Auto) 0 % (0-3) Neutrophils # (Auto) 19.9 x10^3uL (1.8-7.7) Lymphocytes # (Auto) 0.5 x10^3/uL (1.0-4.8) Monocytes # (Auto) 1.1 x10^3/uL (0.0-1.1) Eosinophils # (Auto) 0.1 x10^3/uL (0.0-0.7) Basophils # (Auto) 0.1 x10^3/uL (0.0-0.2) Segmented Neutrophils % 73 % (35-66) Band Neutrophils % 17 % (0-9) Lymphocytes % 3 % (24-48) Atypical Lymphocytes % (Manual) 2 % (0-0) Monocytes % 4 % (0-10) Eosinophils % 1 % (0-5) Toxic Granulation Present Platelet Estimate Decreased (ADEQUATE) Large Platelets Occ Prothrombin Time 29.4 SEC (11.7-14.0) Prothromb Time International Ratio 2.8 (0.8-1.1) Activated Partial Thromboplast Time 47 SEC (24-38) Sodium Level 143 mmol/L (136-145) Potassium Level 4.0 mmol/L (3.5-5.1) Chloride Level 103 mmol/L (98-107) Carbon Dioxide Level 28 mmol/L (21-32) Anion Gap 12 (6-14) Blood Urea Nitrogen 32 mg/dL (8-26) Creatinine 1.2 mg/dL (0.7-1.3) Estimated GFR (Cockcroft-Gault) 58.3 BUN/Creatinine Ratio 27 (6-20) Glucose Level 169 mg/dL (70-99) Lactic Acid Level 2.8 mmol/L (0.4-2.0) 2.5 mmol/L (0.4-2.0) Calcium Level 9.3 mg/dL (8.5-10.1) Total Bilirubin 1.3 mg/dL (0.2-1.0) Aspartate Amino Transf (AST/SGOT) 21 U/L (15-37) Alanine Aminotransferase (ALT/SGPT) 39 U/L (16-63) Alkaline Phosphatase 60 U/L (46-116) Creatine Kinase 42 U/L (39-308) Creatine Kinase MB (Mass) 1.2 ng/mL (0.0-3.6) Creatine Kinase MB Relative Index % (0-4) Troponin I Quantitative 0.079 ng/mL (0.000-0.055) 0.115 ng/mL (0.000-0.055) MB-Bmc-X-Type Natriuretic Peptide 2587 pg/mL (0-449) Total Protein 5.6 g/dL (6.4-8.2) Albumin 3.2 g/dL (3.4-5.0) Albumin/Globulin Ratio 1.3 (1.0-1.7) Influenza Type A Antigen Negative (NEGATIVE) Influenza Type B Antigen Negative (NEGATIVE) Glucose (Fingerstick) 158 mg/dL (70-99) 154 mg/dL (70-99) Laboratory Tests Test 11/27/18 08:30 11/27/18 11:30 11/27/18 13:20 11/27/18 16:37 White Blood Count 21.6 x10^3/uL (4.0-11.0) Red Blood Count 3.93 x10^6/uL (4.30-5.70) Hemoglobin 12.8 g/dL (13.0-17.5) Hematocrit 38.3 % (39.0-53.0) Mean Corpuscular Volume 97 fL (79-100) Mean Corpuscular Hemoglobin 32 pg (25-35) Mean Corpuscular Hemoglobin Concent 33 g/dL (31-37) Red Cell Distribution Width 13.3 % (11.5-14.5) Platelet Count 138 x10^3/uL (140-400) Neutrophils (%) (Auto) 92 % (31-73) Lymphocytes (%) (Auto) 2 % (24-48) Monocytes (%) (Auto) 5 % (0-9) Eosinophils (%) (Auto) 0 % (0-3) Basophils (%) (Auto) 0 % (0-3) Neutrophils # (Auto) 19.9 x10^3uL (1.8-7.7) Lymphocytes # (Auto) 0.5 x10^3/uL (1.0-4.8) Monocytes # (Auto) 1.1 x10^3/uL (0.0-1.1) Eosinophils # (Auto) 0.1 x10^3/uL (0.0-0.7) Basophils # (Auto) 0.1 x10^3/uL (0.0-0.2) Segmented Neutrophils % 73 % (35-66) Band Neutrophils % 17 % (0-9) Lymphocytes % 3 % (24-48) Atypical Lymphocytes % (Manual) 2 % (0-0) Monocytes % 4 % (0-10) Eosinophils % 1 % (0-5) Toxic Granulation Present Platelet Estimate Decreased (ADEQUATE) Large Platelets Occ Prothrombin Time 29.4 SEC (11.7-14.0) Prothromb Time International Ratio 2.8 (0.8-1.1) Activated Partial Thromboplast Time 47 SEC (24-38) Sodium Level 143 mmol/L (136-145) Potassium Level 4.0 mmol/L (3.5-5.1) Chloride Level 103 mmol/L (98-107) Carbon Dioxide Level 28 mmol/L (21-32) Anion Gap 12 (6-14) Blood Urea Nitrogen 32 mg/dL (8-26) Creatinine 1.2 mg/dL (0.7-1.3) Estimated GFR (Cockcroft-Gault) 58.3 BUN/Creatinine Ratio 27 (6-20) Glucose Level 169 mg/dL (70-99) Lactic Acid Level 2.8 mmol/L (0.4-2.0) 2.5 mmol/L (0.4-2.0) Calcium Level 9.3 mg/dL (8.5-10.1) Total Bilirubin 1.3 mg/dL (0.2-1.0) Aspartate Amino Transf (AST/SGOT) 21 U/L (15-37) Alanine Aminotransferase (ALT/SGPT) 39 U/L (16-63) Alkaline Phosphatase 60 U/L (46-116) Creatine Kinase 42 U/L (39-308) Creatine Kinase MB (Mass) 1.2 ng/mL (0.0-3.6) Creatine Kinase MB Relative Index % (0-4) Troponin I Quantitative 0.079 ng/mL (0.000-0.055) 0.115 ng/mL (0.000-0.055) HH-Ysm-E-Type Natriuretic Peptide 2587 pg/mL (0-449) Total Protein 5.6 g/dL (6.4-8.2) Albumin 3.2 g/dL (3.4-5.0) Albumin/Globulin Ratio 1.3 (1.0-1.7) Influenza Type A Antigen Negative (NEGATIVE) Influenza Type B Antigen Negative (NEGATIVE) Glucose (Fingerstick) 158 mg/dL (70-99) 154 mg/dL (70-99) VTE Prophylaxis Ordered VTE Prophylaxis Devices: Yes VTE Pharmacological Prophylaxi: Yes Assessment/Plan Assessment/Plan sepsis, source unknown fever and leukocytosis IV vanco started, will continue obesity, BMI 33 htn admit DOYLE MURRAY MD Nov 27, 2018 17:26
[2018-11-27 19:44] VITALS: BP 118/44
[2018-11-27] MEDS: LABETALOL HCL 200 MG TABLET PO SCH (20:39)
[2018-11-27] MEDS: ATORVASTATIN CALCIUM 10 MG TABLET. PO SCH (20:40)
[2018-11-27 23:53] VITALS: BP 102/60
[2018-11-28 00:01] LABS: BILIRUBIN,URINE NEGATIVE (NEG); CLARITY,URINE CLEAR; COLOR,URINE YELLOW; NITRITE,URINE NEGATIVE (NEG); PROTEIN,URINE NEGATIVE (NEG-TRACE); UROBILINOGEN,URINE 0.2 mg/dL (0.2 mg/dL)
[2018-11-28 00:13] LABS: AMORPHOUS SEDIMENT,UR PRESENT /HPF; BACTERIA,URINE 0 /HPF (0-FEW); SQUAMOUS EPITHELIAL CELL,UR MOD /LPF; WBC,URINE 0 /HPF (0-4)
[2018-11-28] MEDS ORDERED: IPRATRPIUM/ALBUTEROL 0.5/2.5MG 3 ML NEBU. NEB SCH (01:15)
[2018-11-28 03:14] VITALS: BP 100/37
[2018-11-28 04:35] LABS: BASO % 0 % (0-3); EOS # 0.1 x10^3/uL (0.0-0.7); EOS % 1 % (0-3); HEMATOCRIT 30.9 % (39.0-53.0); HEMOGLOBIN 10.3 g/dL (13.0-17.5); LYMPH # 0.9 x10^3/uL (1.0-4.8); LYMPH % 8 % (24-48); MEAN CORPUSCULAR HEMOGLOBIN 33 pg (25-35); MEAN CORPUSCULAR HGB CONC 34 g/dL (31-37); MEAN CORPUSCULAR VOLUME 97 fL (79-100); MONO # 0.7 x10^3/uL (0.0-1.1); MONO % 5 % (0-9); NEUT # 10.7 x10^3uL (1.8-7.7); NEUT % 86 % (31-73); PLATELET COUNT 109 x10^3/uL (140-400); RED BLOOD COUNT 3.18 x10^6/uL (4.30-5.70); RED CELL DISTRIBUTION WIDTH 13.3 % (11.5-14.5); WHITE BLOOD COUNT 12.4 x10^3/uL (4.0-11.0)
[2018-11-28 04:38] LABS: PROTHROMBIN TIME PATIENT 23.7 SEC (11.7-14.0)
[2018-11-28 04:56] LABS: ALBUMIN 2.3 g/dL (3.4-5.0); CALCIUM 8.3 mg/dL (8.5-10.1); GFR 71.9; POTASSIUM 3.7 mmol/L (3.5-5.1); TOTAL BILIRUBIN 1.3 mg/dL (0.2-1.0); TOTAL PROTEIN 4.7 g/dL (6.4-8.2)
[2018-11-28 07:00] VITALS: BP 112/45
[2018-11-28] MEDS: CYANOCOBALAMIN (VITAMIN B-12) 100 MCG TABLET PO SCH (09:38)
[2018-11-28] MEDS: VANCOMYCIN 1.5 GM in IV NORMAL SALINE 500ML BAG 500 ML IV SCH (09:38)
[2018-11-28] MEDS: ASPIRIN ENTERIC COATED 81 MG TABLET.DR. PO SCH (09:39)
[2018-11-28] MEDS: LISINOPRIL 20 MG TABLET PO SCH (09:39)
[2018-11-28] MEDS: FUROSEMIDE 40 MG TABLET. PO SCH (09:39)
[2018-11-28] MEDS: LABETALOL HCL 200 MG TABLET PO SCH ×2 (09:40→21:04)
[2018-11-28 11:00] VITALS: BP 119/55
--- NOTE | 2018-11-28 11:55 | NUR ---
Pharmacy Warfarin Dosing Note S:Pharmacy consulted to assist with anticoagulation therapy started with target INR: 2 -3 O:HOPE ARAIZA is a 78 year old M with Atrial Fibrillation LABS: Last INR: 2.1 Last HGB: 12.8 Last HCT: 38.3 Last PLT: 138 Last dose of 5 mg given on 11/27/18 at 1700 Previous Regimen: 7.5MG TUSA; 5MG ROW Vitamin K given: N Drug Interaction Changes: Ongoing Drug Interactions: A:INR of 2.1 is within desired range. Target range for this patient is: 2 -3 P: Warfarin dose: 5 mg Today at 1600 Bridge Therapy: None Next INR due IN AM Pharmacy anticoagulation service will continue to follow. DENZEL OLEARY German, 11/28/18 [id number]
--- NOTE | 2018-11-28 12:32 | NUR ---
SW following pt for anticipated dc needs. Chart reviewed and DW RN. RN reported independent with ADL's and no skilled needs indicated at this time. CK spoke with Niyah at [facility], phone: [phone], fax: [phone] and confirmed pt is on service. Resumption orders can be faxed to agency upon dc. SW will continue to evaluate dc needs.
--- NOTE | 2018-11-28 13:25 | PDOC2 ---
MIN MARTINEZ SALES DRIVER 11/28/18 1325: CARDIAC CONSULT DATE OF CONSULT Date of Consult DATE: 11/28/18 TIME: 13:13 REASON FOR CONSULT Reason for Consult: Elevated troponin REFERRING PHYSICIAN Referring Physician: Dr. Fuentes SOURCE Source: Chart review, Patient HISTORY OF PRESENT ILLNESS HISTORY OF PRESENT ILLNESS This is an 78 yo male who presented secondary to fevers, cough, congestion, and generalized weakness. Troponin level noted to be elevated, which prompted this consult. Patient reports mild shortness of breath for the last day. Has been tired/fatigued. Was so weak the morning of arrival, was unable to get out of bed. Was febrile upon arrival to the ED. Influenza negative. Denies any chest pain, palpitations, dizziness, diaphoresis, or nausea/vomiting. No sick contacts. Has been complaint with medications. PAST MEDICAL HISTORY Past Medical History Cardiovascular: AFIB (paroxysmal), CAD, HTN, Hyperlipidemia, Other (SSS/CHB) Pulmonary: No pertinent hx CENTRAL NERVOUS SYSTEM: Other (subdural hematoma >1 yr ago) GI: Constipation Heme/Onc: Other (chronic anticoagulation) Hepatobiliary: No pertinent hx Psych: No pertinent hx Musculoskeletal: Osteoarthritis Rheumatologic: No pertinent hx Infectious disease: No pertinent hx ENT: No pertinent hx Renal/: No pertinent hx Endocrine: Diabetes (2) Dermatology: No pertinent hx PAST SURGICAL HISTORY Past Surgical History Pacemaker (Medtronic), CABG, Hernia Repair (umbilical/ventral), Tonsillectomy FAMILY HISTORY Family History: Coronary Artery Disease SOCIAL HISTORY Social History Smoke: Quit ALCOHOL: none Drugs: None Lives: with Family CURRENT MEDICATIONS CURRENT MEDICATIONS Current Medications Medications (Trade) Dose Ordered Sig/Kimberley Route PRN Reason Start Time Stop Time Status Last Admin Dose Admin Vancomycin HCl 1.5 gm/Sodium Chloride 500 ml @ 250 mls/hr Q24H IV 11/28/18 10:00 11/28/18 09:38 Vancomycin HCl (Vanco Per Pharmacy) 1 each PRN DAILY PRN MC SEE COMMENTS 11/27/18 13:15 11/28/18 11:49 Aspirin (Ecotrin) 81 mg DAILY PO 11/28/18 09:00 11/28/18 09:39 Cyanocobalamin (Vitamin B-12) 100 mcg DAILY PO 11/28/18 09:00 11/28/18 09:38 Furosemide (Lasix) 40 mg DAILY PO 11/28/18 09:00 11/28/18 09:39 Lisinopril (Prinivil) 20 mg DAILY PO 11/28/18 09:00 11/28/18 09:39 Labetalol HCl (Trandate) 200 mg BID PO 11/27/18 21:00 11/28/18 09:40 Atorvastatin Calcium (Lipitor) 10 mg QHS PO 11/27/18 21:00 11/27/18 20:40 Warfarin Sodium (Coumadin Per Pharmacy) 1 each PRN DAILY PRN MC SEE COMMENTS 11/27/18 13:45 11/28/18 11:47 Sodium Chloride 1,000 ml @ 125 mls/hr 1X ONCE IV 11/27/18 14:00 11/27/18 21:59 DC 11/27/18 15:23 ALLERGIES ALLERGIES: Coded Allergies: Antihistamines - Alkylamine (Verified Allergy, Intermediate, 12/06/17) Penicillins (Verified Allergy, Intermediate, Hives, 09/11/15) ROS Review of System 14 point ROS conducted with pertinent positives noted above in HPI. PHYSICAL EXAM PHYSICAL EXAM General: Alert, Oriented X3, Cooperative, No acute distress HEENT: Atraumatic, Mucous membr. moist/pink Lungs: Other (diminished bases) Heart: Normal S1, Normal S2, Other (paced with underlying AFIB; distant heart sounds) Abdomen: Soft, No tenderness Extremities: No cyanosis, Other (trace- 1+ bilateral LE edema) Skin: No breakdown, No significant lesion Neuro: Normal speech, Sensation intact Psych/Mental Status: Mood NL MUSCULOSKELETAL: Osteoarthritic changes both hands VITALS VITALS Vital Signs Date Time Temp Pulse Resp B/P (MAP) Pulse Ox O2 Delivery O2 Flow Rate FiO2 11/28/18 11:00 97.8 61 16 119/55 (76) 98 Room Air 97.8 11/28/18 08:00 2.0 LABS Lab: Laboratory Tests Test 11/27/18 13:20 11/27/18 16:37 11/27/18 23:50 11/28/18 03:45 Lactic Acid Level 2.5 mmol/L (0.4-2.0) Troponin I Quantitative 0.115 ng/mL (0.000-0.055) Glucose (Fingerstick) 154 mg/dL (70-99) Urine Collection Type Unknown Urine Color Yellow Urine Clarity Clear Urine pH 5.0 Urine Specific Lindsay 1.025 Urine Protein Negative mg/dL (NEG-TRACE) Urine Glucose (UA) Negative mg/dL (NEG) Urine Ketones (Stick) Negative mg/dL (NEG) Urine Blood Negative (NEG) Urine Nitrite Negative (NEG) Urine Bilirubin Negative (NEG) Urine Urobilinogen Dipstick 0.2 mg/dL (0.2 mg/dL) Urine Leukocyte Esterase Negative (NEG) Urine RBC 6-10 /HPF (0-2) Urine WBC 0 /HPF (0-4) Urine Squamous Epithelial Cells Mod /LPF Urine Amorphous Sediment Present /HPF Urine Bacteria 0 /HPF (0-FEW) Urine Mucus Marked /LPF White Blood Count 12.4 x10^3/uL (4.0-11.0) Red Blood Count 3.18 x10^6/uL (4.30-5.70) Hemoglobin 10.3 g/dL (13.0-17.5) Hematocrit 30.9 % (39.0-53.0) Mean Corpuscular Volume 97 fL (79-100) Mean Corpuscular Hemoglobin 33 pg (25-35) Mean Corpuscular Hemoglobin Concent 34 g/dL (31-37) Red Cell Distribution Width 13.3 % (11.5-14.5) Platelet Count 109 x10^3/uL (140-400) Neutrophils (%) (Auto) 86 % (31-73) Lymphocytes (%) (Auto) 8 % (24-48) Monocytes (%) (Auto) 5 % (0-9) Eosinophils (%) (Auto) 1 % (0-3) Basophils (%) (Auto) 0 % (0-3) Neutrophils # (Auto) 10.7 x10^3uL (1.8-7.7) Lymphocytes # (Auto) 0.9 x10^3/uL (1.0-4.8) Monocytes # (Auto) 0.7 x10^3/uL (0.0-1.1) Eosinophils # (Auto) 0.1 x10^3/uL (0.0-0.7) Basophils # (Auto) 0.0 x10^3/uL (0.0-0.2) Prothrombin Time 23.7 SEC (11.7-14.0) Prothromb Time International Ratio 2.1 (0.8-1.1) Sodium Level 139 mmol/L (136-145) Potassium Level 3.7 mmol/L (3.5-5.1) Chloride Level 103 mmol/L (98-107) Carbon Dioxide Level 29 mmol/L (21-32) Anion Gap 7 (6-14) Blood Urea Nitrogen 26 mg/dL (8-26) Creatinine 1.0 mg/dL (0.7-1.3) Estimated GFR (Cockcroft-Gault) 71.9 BUN/Creatinine Ratio 26 (6-20) Glucose Level 133 mg/dL (70-99) Calcium Level 8.3 mg/dL (8.5-10.1) Total Bilirubin 1.3 mg/dL (0.2-1.0) Aspartate Amino Transf (AST/SGOT) 16 U/L (15-37) Alanine Aminotransferase (ALT/SGPT) 27 U/L (16-63) Alkaline Phosphatase 42 U/L (46-116) Total Protein 4.7 g/dL (6.4-8.2) Albumin 2.3 g/dL (3.4-5.0) Albumin/Globulin Ratio 1.0 (1.0-1.7) Test 11/28/18 07:18 11/28/18 11:36 Glucose (Fingerstick) 130 mg/dL (70-99) 167 mg/dL (70-99) ECHOCARDIOGRAM ECHOCARDIOGRAM <Conclusion> Left ventricle systolic function is mildly decreased. EF 40-45%. Septal motion suggestive of conduction defect with mild diffuse global hypokinesis. Transmitral Doppler flow pattern is Grade III-reversible restrictive diastolic dysfunction. Pacer lead noted in RV/RA. Doppler and Color Flow revealed trace tricuspid regurgitation. There is moderate pulmonary hypertension. The PA pressure was estimated at 41 mmHg. There is a small pericardial effusion versus a prominent fat pad around the right heart. DATE: 11/15/18 1036 STRESS TEST STRESS TEST Conclusion 1. Non-diagnostic EKG due to paced rhythm 2. Fixed anterior/apical/lateral defects as described above with minimal emy- infarct reversibility 3. Moderate LV dysfunction. EF 40% 4. Moderate risk stress based on LV dysfunction and prior infarct. No significant reversibility identified. DATE: 04/20/16 1646 ASSESSMENT/PLAN ASSESSMENT/PLAN 1. Weakness, generalized. Recently treated for PNA 2. Leukocytosis, lactic acidosis, fevers. 3. Elevated trop; peak 0.115. CP free. Most probably type II, demand ischemia in the setting of acute infection. 4. Chronic systolic/diastolic HF. Appears compensated. CXR without pulmonary edema. CT chest pending 5. CAD: remote CABG. Stable. CP free 6. ICM: LVEF 40-45% 7. SSS s/p PPM in situ(Medtronic). 8. PAFIB; chronic anticoagulation with Coumadin; INR 2.1 8. HTN; controlled. 9. DM2/HLP; statin Recommendations Secondary prevention measures; ASA, BB, ACEi, statin Continue oral Lasix Warfarin for stroke prevention Consider further ischemic workup on an outpatient basis. PAULINO VERA MD 11/28/182039: CARDIAC CONSULT ASSESSMENT/PLAN ASSESSMENT/PLAN Patient seen and examined. Agree with MECHANICAL MAINTENANCE's assessment and plan. Slight troponin elevation probably demand ischemia Chronic systolic heart failure compensated CAD and SSS/PPM appear stable clinically Plan ischemic evaluation with stress test as outpatient Thank you for your consultation MIN MARTINEZ APRN Nov 28, 2018 13:25 PAULINO VERA MD Nov 28, 2018 20:40
--- NOTE | 2018-11-28 13:32 | PDOC ---
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 Dizziness, resolved. Headache. Could be from viral illness, now resolved Coronary artery disease, status post coronary artery bypass grafting. Hypertension/hyperlipidemia. Rt ear pain on cefdinir prior to admission 11/19 Obesity. 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 Cerebral volume loss. Paranasal sinus disease, partially included on the [id number]. ON CT 11/19 obesity, BMI [address] chest today accuchecks, a1c Vitals Vitals Vital Signs Date Time Temp Pulse Resp B/P (MAP) Pulse Ox O2 Delivery O2 Flow Rate FiO2 11/28/18 11:00 97.8 61 16 119/55 (76) 98 Room Air 97.8 11/28/18 08:00 2.0 Physical Exam General: Alert, Oriented X3, Cooperative, No acute distress Heart: Regular rate Lungs: Other (dec rll) Abdomen: Normal bowel sounds, Soft (obese, ), No tenderness Extremities: No cyanosis, No edema, Other (right lower leg still red, warm to touch no skin breakdown) Skin: No rashes, No significant lesion Labs LABS COMPARISON: 12/06/2017. FINDINGS: There is no acute or subacute extra-axial or intraparenchymal hemorrhage. There is no mass effect or midline shift. There is no hydrocephalus. There are areas of decreased attenuation within the cerebral white matter, nonspecific and likely related to chronic small vessel disease. There is cerebral volume loss. There is hypodensity within the inferior right frontal lobe likely due to encephalomalacia. There is a metallic foreign body within the left anterior maxillary soft tissues. There is paranasal sinus mucosal thickening. The mastoid air cells are clear. There is calcified atherosclerotic plaque within the distal internal carotid arteries. No calvarial lesion is seen. IMPRESSION: 1. No acute intracranial finding. 2. Scattered areas of hypodensity throughout the cerebral white matter, a nonspecific finding likely due to chronic small vessel disease. 3. 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 4. Cerebral volume loss. 5. Paranasal sinus disease, partially included on the [id number]. Electronically signed by: Ada Weeks MD (11/15/2018 10:02 AM) [id number] DICTATED and SIGNED BY: ADA WEEKS MD DATE: 11/15/18955 STATUS: ADM IN TLOC: SPEC #: [id number] FERNANDO: 11/27/18 STATUS: RES REQ #: [id number] RECD: 11/27/[address]: SHARON FRYE DO SOURCE: BLOOD ENTR: 11/27/18 [facility] DR: KOLBY MALDONADO MD [facility]: ORDERED: BCULT Procedure Result BLOOD CULTURE Preliminary NO GROWTH AFTER 1 DAY Laboratory Tests Test 11/27/18 16:37 11/27/18 23:50 11/28/18 03:45 11/28/18 07:18 Glucose (Fingerstick) 154 mg/dL (70-99) 130 mg/dL (70-99) Urine Collection Type Unknown Urine Color Yellow Urine Clarity Clear Urine pH 5.0 Urine Specific [place] 1.025 Urine Protein Negative mg/dL (NEG-TRACE) Urine Glucose (UA) Negative mg/dL (NEG) Urine Ketones (Stick) Negative mg/dL (NEG) Urine Blood Negative (NEG) Urine Nitrite Negative (NEG) Urine Bilirubin Negative (NEG) Urine Urobilinogen Dipstick 0.2 mg/dL (0.2 mg/dL) Urine Leukocyte Esterase Negative (NEG) Urine RBC 6-10 /HPF (0-2) Urine WBC 0 /HPF (0-4) Urine Squamous Epithelial Cells Mod /LPF Urine Amorphous Sediment Present /HPF Urine Bacteria 0 /HPF (0-FEW) Urine Mucus Marked /LPF White Blood Count 12.4 x10^3/uL (4.0-11.0) Red Blood Count 3.18 x10^6/uL (4.30-5.70) Hemoglobin 10.3 g/dL (13.0-17.5) Hematocrit 30.9 % (39.0-53.0) Mean Corpuscular Volume 97 fL (79-100) Mean Corpuscular Hemoglobin 33 pg (25-35) Mean Corpuscular Hemoglobin Concent 34 g/dL (31-37) Red Cell Distribution Width 13.3 % (11.5-14.5) Platelet Count 109 x10^3/uL (140-400) Neutrophils (%) (Auto) 86 % (31-73) Lymphocytes (%) (Auto) 8 % (24-48) Monocytes (%) (Auto) 5 % (0-9) Eosinophils (%) (Auto) 1 % (0-3) Basophils (%) (Auto) 0 % (0-3) Neutrophils # (Auto) 10.7 x10^3uL (1.8-7.7) Lymphocytes # (Auto) 0.9 x10^3/uL (1.0-4.8) Monocytes # (Auto) 0.7 x10^3/uL (0.0-1.1) Eosinophils # (Auto) 0.1 x10^3/uL (0.0-0.7) Basophils # (Auto) 0.0 x10^3/uL (0.0-0.2) Prothrombin Time 23.7 SEC (11.7-14.0) Prothromb Time International Ratio 2.1 (0.8-1.1) Sodium Level 139 mmol/L (136-145) Potassium Level 3.7 mmol/L (3.5-5.1) Chloride Level 103 mmol/L (98-107) Carbon Dioxide Level 29 mmol/L (21-32) Anion Gap 7 (6-14) Blood Urea Nitrogen 26 mg/dL (8-26) Creatinine 1.0 mg/dL (0.7-1.3) Estimated GFR (Cockcroft-Gault) 71.9 BUN/Creatinine Ratio 26 (6-20) Glucose Level 133 mg/dL (70-99) Calcium Level 8.3 mg/dL (8.5-10.1) Total Bilirubin 1.3 mg/dL (0.2-1.0) Aspartate Amino Transf (AST/SGOT) 16 U/L (15-37) Alanine Aminotransferase (ALT/SGPT) 27 U/L (16-63) Alkaline Phosphatase 42 U/L (46-116) Total Protein 4.7 g/dL (6.4-8.2) Albumin 2.3 g/dL (3.4-5.0) Albumin/Globulin Ratio 1.0 (1.0-1.7) Test 11/28/18 11:36 Glucose (Fingerstick) 167 mg/dL (70-99) Assessment and Plan Assessmemt and Plan Problems Medical Problems: (1) Cellulitis of right leg Status: Acute (2) Sepsis Status: Acute Comment Review of Relevant I have reviewed the following items gerda (where applicable) has been applied. Labs Laboratory Tests Test 11/27/18 08:30 11/27/18 11:30 11/27/18 13:20 11/27/18 16:37 White Blood Count 21.6 x10^3/uL (4.0-11.0) Red Blood Count 3.93 x10^6/uL (4.30-5.70) Hemoglobin 12.8 g/dL (13.0-17.5) Hematocrit 38.3 % (39.0-53.0) Mean Corpuscular Volume 97 fL (79-100) Mean Corpuscular Hemoglobin 32 pg (25-35) Mean Corpuscular Hemoglobin Concent 33 g/dL (31-37) Red Cell Distribution Width 13.3 % (11.5-14.5) Platelet Count 138 x10^3/uL (140-400) Neutrophils (%) (Auto) 92 % (31-73) Lymphocytes (%) (Auto) 2 % (24-48) Monocytes (%) (Auto) 5 % (0-9) Eosinophils (%) (Auto) 0 % (0-3) Basophils (%) (Auto) 0 % (0-3) Neutrophils # (Auto) 19.9 x10^3uL (1.8-7.7) Lymphocytes # (Auto) 0.5 x10^3/uL (1.0-4.8) Monocytes # (Auto) 1.1 x10^3/uL (0.0-1.1) Eosinophils # (Auto) 0.1 x10^3/uL (0.0-0.7) Basophils # (Auto) 0.1 x10^3/uL (0.0-0.2) Segmented Neutrophils % 73 % (35-66) Band Neutrophils % 17 % (0-9) Lymphocytes % 3 % (24-48) Atypical Lymphocytes % (Manual) 2 % (0-0) Monocytes % 4 % (0-10) Eosinophils % 1 % (0-5) Toxic Granulation Present Platelet Estimate Decreased (ADEQUATE) Large Platelets Occ Prothrombin Time 29.4 SEC (11.7-14.0) Prothromb Time International Ratio 2.8 (0.8-1.1) Activated Partial Thromboplast Time 47 SEC (24-38) Sodium Level 143 mmol/L (136-145) Potassium Level 4.0 mmol/L (3.5-5.1) Chloride Level 103 mmol/L (98-107) Carbon Dioxide Level 28 mmol/L (21-32) Anion Gap 12 (6-14) Blood Urea Nitrogen 32 mg/dL (8-26) Creatinine 1.2 mg/dL (0.7-1.3) Estimated GFR (Cockcroft-Gault) 58.3 BUN/Creatinine Ratio 27 (6-20) Glucose Level 169 mg/dL (70-99) Lactic Acid Level 2.8 mmol/L (0.4-2.0) 2.5 mmol/L (0.4-2.0) Calcium Level 9.3 mg/dL (8.5-10.1) Total Bilirubin 1.3 mg/dL (0.2-1.0) Aspartate Amino Transf (AST/SGOT) 21 U/L (15-37) Alanine Aminotransferase (ALT/SGPT) 39 U/L (16-63) Alkaline Phosphatase 60 U/L (46-116) Creatine Kinase 42 U/L (39-308) Creatine Kinase MB (Mass) 1.2 ng/mL (0.0-3.6) Creatine Kinase MB Relative Index % (0-4) Troponin I Quantitative 0.079 ng/mL (0.000-0.055) 0.115 ng/mL (0.000-0.055) LC-Iap-M-Type Natriuretic Peptide 2587 pg/mL (0-449) Total Protein 5.6 g/dL (6.4-8.2) Albumin 3.2 g/dL (3.4-5.0) Albumin/Globulin Ratio 1.3 (1.0-1.7) Influenza Type A Antigen Negative (NEGATIVE) Influenza Type B Antigen Negative (NEGATIVE) Glucose (Fingerstick) 158 mg/dL (70-99) 154 mg/dL (70-99) Test 11/27/18 23:50 11/28/18 03:45 11/28/18 07:18 11/28/18 11:36 Urine Collection Type Unknown Urine Color Yellow Urine Clarity Clear Urine pH 5.0 Urine Specific [place] 1.025 Urine Protein Negative mg/dL (NEG-TRACE) Urine Glucose (UA) Negative mg/dL (NEG) Urine Ketones (Stick) Negative mg/dL (NEG) Urine Blood Negative (NEG) Urine Nitrite Negative (NEG) Urine Bilirubin Negative (NEG) Urine Urobilinogen Dipstick 0.2 mg/dL (0.2 mg/dL) Urine Leukocyte Esterase Negative (NEG) Urine RBC 6-10 /HPF (0-2) Urine WBC 0 /HPF (0-4) Urine Squamous Epithelial Cells Mod /LPF Urine Amorphous Sediment Present /HPF Urine Bacteria 0 /HPF (0-FEW) Urine Mucus Marked /LPF White Blood Count 12.4 x10^3/uL (4.0-11.0) Red Blood Count 3.18 x10^6/uL (4.30-5.70) Hemoglobin 10.3 g/dL (13.0-17.5) Hematocrit 30.9 % (39.0-53.0) Mean Corpuscular Volume 97 fL (79-100) Mean Corpuscular Hemoglobin 33 pg (25-35) Mean Corpuscular Hemoglobin Concent 34 g/dL (31-37) Red Cell Distribution Width 13.3 % (11.5-14.5) Platelet Count 109 x10^3/uL (140-400) Neutrophils (%) (Auto) 86 % (31-73) Lymphocytes (%) (Auto) 8 % (24-48) Monocytes (%) (Auto) 5 % (0-9) Eosinophils (%) (Auto) 1 % (0-3) Basophils (%) (Auto) 0 % (0-3) Neutrophils # (Auto) 10.7 x10^3uL (1.8-7.7) Lymphocytes # (Auto) 0.9 x10^3/uL (1.0-4.8) Monocytes # (Auto) 0.7 x10^3/uL (0.0-1.1) Eosinophils # (Auto) 0.1 x10^3/uL (0.0-0.7) Basophils # (Auto) 0.0 x10^3/uL (0.0-0.2) Prothrombin Time 23.7 SEC (11.7-14.0) Prothromb Time International Ratio 2.1 (0.8-1.1) Sodium Level 139 mmol/L (136-145) Potassium Level 3.7 mmol/L (3.5-5.1) Chloride Level 103 mmol/L (98-107) Carbon Dioxide Level 29 mmol/L (21-32) Anion Gap 7 (6-14) Blood Urea Nitrogen 26 mg/dL (8-26) Creatinine 1.0 mg/dL (0.7-1.3) Estimated GFR (Cockcroft-Gault) 71.9 BUN/Creatinine Ratio 26 (6-20) Glucose Level 133 mg/dL (70-99) Calcium Level 8.3 mg/dL (8.5-10.1) Total Bilirubin 1.3 mg/dL (0.2-1.0) Aspartate Amino Transf (AST/SGOT) 16 U/L (15-37) Alanine Aminotransferase (ALT/SGPT) 27 U/L (16-63) Alkaline Phosphatase 42 U/L (46-116) Total Protein 4.7 g/dL (6.4-8.2) Albumin 2.3 g/dL (3.4-5.0) Albumin/Globulin Ratio 1.0 (1.0-1.7) Glucose (Fingerstick) 130 mg/dL (70-99) 167 mg/dL (70-99) Laboratory Tests Test 11/27/18 16:37 11/27/18 23:50 11/28/18 03:45 11/28/18 07:18 Glucose (Fingerstick) 154 mg/dL (70-99) 130 mg/dL (70-99) Urine Collection Type Unknown Urine Color Yellow Urine Clarity Clear Urine pH 5.0 Urine Specific [place] 1.025 Urine Protein Negative mg/dL (NEG-TRACE) Urine Glucose (UA) Negative mg/dL (NEG) Urine Ketones (Stick) Negative mg/dL (NEG) Urine Blood Negative (NEG) Urine Nitrite Negative (NEG) Urine Bilirubin Negative (NEG) Urine Urobilinogen Dipstick 0.2 mg/dL (0.2 mg/dL) Urine Leukocyte Esterase Negative (NEG) Urine RBC 6-10 /HPF (0-2) Urine WBC 0 /HPF (0-4) Urine Squamous Epithelial Cells Mod /LPF Urine Amorphous Sediment Present /HPF Urine Bacteria 0 /HPF (0-FEW) Urine Mucus Marked /LPF White Blood Count 12.4 x10^3/uL (4.0-11.0) Red Blood Count 3.18 x10^6/uL (4.30-5.70) Hemoglobin 10.3 g/dL (13.0-17.5) Hematocrit 30.9 % (39.0-53.0) Mean Corpuscular Volume 97 fL (79-100) Mean Corpuscular Hemoglobin 33 pg (25-35) Mean Corpuscular Hemoglobin Concent 34 g/dL (31-37) Red Cell Distribution Width 13.3 % (11.5-14.5) Platelet Count 109 x10^3/uL (140-400) Neutrophils (%) (Auto) 86 % (31-73) Lymphocytes (%) (Auto) 8 % (24-48) Monocytes (%) (Auto) 5 % (0-9) Eosinophils (%) (Auto) 1 % (0-3) Basophils (%) (Auto) 0 % (0-3) Neutrophils # (Auto) 10.7 x10^3uL (1.8-7.7) Lymphocytes # (Auto) 0.9 x10^3/uL (1.0-4.8) Monocytes # (Auto) 0.7 x10^3/uL (0.0-1.1) Eosinophils # (Auto) 0.1 x10^3/uL (0.0-0.7) Basophils # (Auto) 0.0 x10^3/uL (0.0-0.2) Prothrombin Time 23.7 SEC (11.7-14.0) Prothromb Time International Ratio 2.1 (0.8-1.1) Sodium Level 139 mmol/L (136-145) Potassium Level 3.7 mmol/L (3.5-5.1) Chloride Level 103 mmol/L (98-107) Carbon Dioxide Level 29 mmol/L (21-32) Anion Gap 7 (6-14) Blood Urea Nitrogen 26 mg/dL (8-26) Creatinine 1.0 mg/dL (0.7-1.3) Estimated GFR (Cockcroft-Gault) 71.9 BUN/Creatinine Ratio 26 (6-20) Glucose Level 133 mg/dL (70-99) Calcium Level 8.3 mg/dL (8.5-10.1) Total Bilirubin 1.3 mg/dL (0.2-1.0) Aspartate Amino Transf (AST/SGOT) 16 U/L (15-37) Alanine Aminotransferase (ALT/SGPT) 27 U/L (16-63) Alkaline Phosphatase 42 U/L (46-116) Total Protein 4.7 g/dL (6.4-8.2) Albumin 2.3 g/dL (3.4-5.0) Albumin/Globulin Ratio 1.0 (1.0-1.7) Test 11/28/18 11:36 Glucose (Fingerstick) 167 mg/dL (70-99) Microbiology 11/27/18 Blood Culture - Preliminary, Resulted NO GROWTH AFTER 1 DAY Medications Current Medications Acetaminophen (Tylenol) 1,000 mg 1X ONCE PO Last administered on 11/27/18 09: 01; Start 11/27/18 at 08:45; Stop 11/27/18 at 08:46; Status DC Vancomycin HCl (Vanco Per Pharmacy) 1 each PRN DAILY PRN MC SEE COMMENTS Last administered on 11/27/18at 12:45; Start 11/27/18 at 09:15; Stop 11/27/18 at 13:04 ; Status DC Vancomycin HCl 2 gm/Sodium Chloride 500 ml @ 250 mls/hr 1X ONCE IV Last administered on 11/27/18at 09:51; Start 11/27/18 at 09:30; Stop 11/27/18 at 11:29 ; Status DC Ondansetron HCl (Zofran) 4 mg PRN Q8HRS PRN IV NAUSEA/VOMITING; Start 11/27/18 at 10:15; Stop 11/28/18 at 10:14; Status DC Vancomycin HCl 1.5 gm/Sodium Chloride 500 ml @ 250 mls/hr Q24H IV Last administered on 11/28/18 09:38; Start 11/28/18 at 10:00 Vancomycin HCl (Vancomycin Trough Level) 1 each 1X ONCE MC ; Start 11/29/18 at 09:30; Stop 11/29/18 at 09:31 Vancomycin HCl (Vanco Per Pharmacy) 1 each PRN DAILY PRN MC SEE COMMENTS Last administered on 11/28/18at 11:49; Start 11/27/18 at 13:15 Albuterol Sulfate (Ventolin Neb Soln) 2.5 mg PRN Q6HRS PRN INH SHORTNESS OF BREATH; Start 11/27/18 at 13:45; Stop 11/28/18 at 01:10; Status DC Aspirin (Ecotrin) 81 mg DAILY PO Last administered on 11/28/18 09:39; Start at 09:00 Cyanocobalamin (Vitamin B-12) 100 mcg DAILY PO Last administered on 11/28/18 09:38; Start 11/28/18 at 09:00 Furosemide (Lasix) 40 mg DAILY PO Last administered on 11/28/18 09:39; Start 11/28/18 at 09:00 Lisinopril (Prinivil) 20 mg DAILY PO Last administered on 11/28/18at 09:39; Start 11/28/18 at 09:00 Labetalol HCl (Trandate) 200 mg BID PO Last administered on 11/28/18at 09:40; Start 11/27/18 at 21:00 Atorvastatin Calcium (Lipitor) 10 mg QHS PO Last administered on 11/27/18at 20: 40; Start 11/27/18 at 21:00 Warfarin Sodium (Coumadin) 5 mg 1X WARF ONCE PO ; Start 11/27/18 at 16:00; Stop 11/27/18 at 16:01; Status DC Warfarin Sodium (Coumadin Per Pharmacy) 1 each PRN DAILY PRN MC SEE COMMENTS Last administered on 11/28/18at 11:47; Start 11/27/18 at 13:45 Sodium Chloride 1,000 ml @ 125 mls/hr 1X ONCE IV Last administered on at 15:23; Start 11/27/18 at 14:00; Stop 11/27/18 at 21:59; Status DC Albuterol/ Ipratropium (Duoneb) 3 ml RTQID NEB ; Start 11/28/18 at 01:15; Stop 11/28/18 at 01:15; Status DC Warfarin Sodium (Coumadin) 5 mg 1X WARF ONCE PO ; Start 11/28/18 at 16:00; Stop 11/28/18 at 16:01 Lactobacillus Rhamnosus (Culturelle) 1 cap BID PO ; Start 11/28/18 at 21:00 Active Scripts Active Proair Hfa Inhaler (Albuterol Sulfate) 8.5 Gm Hfa.aer.ad 1 Puff INH PRN Q6HRS PRN 14 Days Doxycycline Hyclate 100 Mg Tablet 100 Mg PO BID MDD 1 Reported Warfarin Sodium 5 Mg Tablet 5 Mg PO DAILY Warfarin Sodium 7.5 Mg Tablet 7.5 Mg PO QTU Warfarin Sodium 5 Mg Tablet 5 Mg PO DAILY TAKES M,W,TH,FR, VERDUGO Warfarin Sodium 7.5 Mg Tablet 7.5 Mg PO QSA Furosemide 40 Mg Tablet 1 Tab PO DAILY Vitamin B-12 (Cyanocobalamin (Vitamin B-12)) 100 Mcg Tablet 100 Mcg PO Aspir 81 (Aspirin) 81 Mg Tablet.dr 81 Mg PO DAILY Lisinopril 20 Mg Tablet 20 Mg PO DAILY Labetalol Hcl 200 Mg Tablet 200 Mg PO BID Lovastatin 40 Mg Tablet 40 Mg PO BID Vitals/I & O Vital Sign - Last 24 Hours 11/27/18 11/27/18 11/27/18 11/27/18 15:15 19:44 20:00 20:39 Temp 98.8 99.5 98.8 99.5 Pulse 60 61 60 Resp 20 18 B/P (MAP) 90/41 (57) 118/44 (68) 106/37 Pulse Ox 94 97 O2 Delivery Room Air Room Air Room Air 11/27/18 11/28/18 11/28/18 11/28/18 23:53 01:26 03:14 07:00 Temp 100.4 99.8 99.8 98.4 100.4 99.8 99.8 98.4 Pulse 85 59 103 Resp 18 18 16 B/P (MAP) 102/60 (74) 100/37 (58) 112/45 (67) Pulse Ox 64 97 97 O2 Delivery Room Air Nasal Cannula Nasal Cannula O2 Flow Rate 2.0 2.0 11/28/18 11/28/18 11/28/18 11/28/18 08:00 09:39 09:40 11:00 Temp 97.8 97.8 Pulse 103 103 61 Resp 16 B/P (MAP) 112/45 112/45 119/55 (76) Pulse Ox 98 O2 Delivery Room Air Room Air O2 Flow Rate 2.0 Intake and Output 11/27/18 11/27/18 11/28/18 15:00 23:00 07:00 Intake Total 0 ml 300 ml 640 ml Balance 0 ml 300 ml 640 ml GLENN BHANDARI MD Nov 28, 2018 13:32
[2018-11-28 14:39] VITALS: BP 101/52
[2018-11-28] MEDS ORDERED: WARFARIN 5 MG TABLET. PO ONE (16:00)
--- NOTE | 2018-11-28 16:36 | RAD ---
CT CHEST WO CONTRAST Indication: PNEUMONIA Technique: Noncontrast CT imaging was performed of the chest, multiplanar reconstruction images submitted. One or more of the following individualized dose reduction techniques were utilized for this examination: 1. Automated exposure control 2. Adjustment of the mA and/or kV according to patient size 3. Use of iterative reconstruction technique. Comparison: There is no previous chest CT available, correlation made with chest radiograph 11/27/2018 Findings: There is some motion. There is again dual lead left electronic cardiac device. There is no pericardial effusion or pneumothorax. There again has been a median sternotomy. There is coronary calcification. There is minimal trace right pleural effusion. There is mild dependent atelectasis bilaterally. There is no significant infiltrate. There are calcified left hilar and subcarinal nodes, no significant noncalcified lymphadenopathy of the chest. There is some atherosclerotic calcification of the proximal renal arteries and superior mesenteric artery. There are a couple of fat-containing ventral hernias of the superior abdomen, largest with neck about 2.5 cm transverse. IMPRESSION: 1. There is no significant infiltrate, trace dependent right pleural effusion and trace dependent atelectasis bilaterally. 2. There has been median sternotomy. There is coronary calcification. 3. There are couple of ventral fat-containing hernias of the visualized superior abdomen. Electronically signed by: Nahid Stephenson MD (11/28/2018 4:33 PM) [id number]
[2018-11-28 19:05] VITALS: BP 103/56
[2018-11-28] MEDS: LACTOBACILLUS RHAMNOSUS GG 1 CAPSULE. PO SCH (21:03)
[2018-11-28] MEDS: ATORVASTATIN CALCIUM 10 MG TABLET. PO SCH (21:03)
[2018-11-28 23:10] VITALS: BP 115/57
[2018-11-29 02:13] LABS: HEMOGLOBIN A1C 7.2 % (4.8-5.6)
[2018-11-29 03:15] VITALS: BP 112/55
[2018-11-29 05:02] LABS: BASO % 0 % (0-3); EOS # 0.2 x10^3/uL (0.0-0.7); EOS % 3 % (0-3); HEMATOCRIT 30.3 % (39.0-53.0); HEMOGLOBIN 10.2 g/dL (13.0-17.5); LYMPH # 0.8 x10^3/uL (1.0-4.8); LYMPH % 10 % (24-48); MEAN CORPUSCULAR HEMOGLOBIN 33 pg (25-35); MEAN CORPUSCULAR HGB CONC 34 g/dL (31-37); MEAN CORPUSCULAR VOLUME 98 fL (79-100); MONO # 0.6 x10^3/uL (0.0-1.1); MONO % 7 % (0-9); NEUT # 6.4 x10^3uL (1.8-7.7); NEUT % 80 % (31-73); PLATELET COUNT 100 x10^3/uL (140-400); RED BLOOD COUNT 3.11 x10^6/uL (4.30-5.70); RED CELL DISTRIBUTION WIDTH 13.5 % (11.5-14.5)
[2018-11-29 05:17] LABS: CALCIUM 8.3 mg/dL (8.5-10.1); CREATININE 0.9 mg/dL (0.7-1.3); GFR 81.2; POTASSIUM 3.5 mmol/L (3.5-5.1)
[2018-11-29 05:18] LABS: PROTHROMBIN TIME PATIENT 18.6 SEC (11.7-14.0)
[2018-11-29 07:15] VITALS: BP 124/60
--- NOTE | 2018-11-29 09:01 | PDOC ---
PROGRESS NOTES History of Present Illness History of Present Illness Assessment/Plan sepsis, source unknown fever and leukocytosis right lower leg cellulitis PO OMNICEF COPD recent Pneumonia left lower lobe recent Febrile illness likely Resp viral illness with superimposed bacterial [employer] Type 2 diabetes. Dizziness, resolved. Headache. Could be from viral illness, now resolved Coronary artery disease, status post coronary artery bypass grafting. Hypertension/hyperlipidemia. Rt ear pain on cefdinir prior to admission 11/19 Obesity. 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 Cerebral volume loss. Paranasal sinus disease, partially included on the [id number]. ON CT 11/19 obesity, BMI 33 htn admit change vanc to omnicef leg elevation ct chest REVIEWED IMAGES PERSONALLY accuchecks, a1c Vitals Vitals Vital Signs Date Time Temp Pulse Resp B/P (MAP) Pulse Ox O2 Delivery O2 Flow Rate FiO2 11/29/18 07:15 97.9 60 18 124/60 (81) 96 Nasal Cannula 97.9 11/28/18 08:00 2.0 Physical Exam General: Alert, Oriented X3, Cooperative, No acute distress Heart: Regular rate, Normal S1, No murmurs Lungs: Other (dec rll) Abdomen: Normal bowel sounds, Soft (obese, ), No tenderness Extremities: No cyanosis, No edema, Other (right lower leg still red, warm to touch no skin breakdown) Skin: No rashes, No significant lesion Labs LABS Laboratory Tests Test 11/28/18 11:36 11/28/18 17:14 11/28/18 20:54 11/29/18 04:00 Glucose (Fingerstick) 167 mg/dL (70-99) 166 mg/dL (70-99) 218 mg/dL (70-99) White Blood Count 8.0 x10^3/uL (4.0-11.0) Red Blood Count 3.11 x10^6/uL (4.30-5.70) Hemoglobin 10.2 g/dL (13.0-17.5) Hematocrit 30.3 % (39.0-53.0) Mean Corpuscular Volume 98 fL (79-100) Mean Corpuscular Hemoglobin 33 pg (25-35) Mean Corpuscular Hemoglobin Concent 34 g/dL (31-37) Red Cell Distribution Width 13.5 % (11.5-14.5) Platelet Count 100 x10^3/uL (140-400) Neutrophils (%) (Auto) 80 % (31-73) Lymphocytes (%) (Auto) 10 % (24-48) Monocytes (%) (Auto) 7 % (0-9) Eosinophils (%) (Auto) 3 % (0-3) Basophils (%) (Auto) 0 % (0-3) Neutrophils # (Auto) 6.4 x10^3uL (1.8-7.7) Lymphocytes # (Auto) 0.8 x10^3/uL (1.0-4.8) Monocytes # (Auto) 0.6 x10^3/uL (0.0-1.1) Eosinophils # (Auto) 0.2 x10^3/uL (0.0-0.7) Basophils # (Auto) 0.0 x10^3/uL (0.0-0.2) Prothrombin Time 18.6 SEC (11.7-14.0) Prothromb Time International Ratio 1.6 (0.8-1.1) Sodium Level 139 mmol/L (136-145) Potassium Level 3.5 mmol/L (3.5-5.1) Chloride Level 104 mmol/L (98-107) Carbon Dioxide Level 28 mmol/L (21-32) Anion Gap 7 (6-14) Blood Urea Nitrogen 20 mg/dL (8-26) Creatinine 0.9 mg/dL (0.7-1.3) Estimated GFR (Cockcroft-Gault) 81.2 Glucose Level 148 mg/dL (70-99) Calcium Level 8.3 mg/dL (8.5-10.1) Test 11/29/18 07:20 Glucose (Fingerstick) 158 mg/dL (70-99) Assessment and Plan Assessmemt and Plan Problems Medical Problems: (1) Cellulitis of right leg Status: Acute (2) Sepsis Status: Acute Comment Review of Relevant I have reviewed the following items gerda (where applicable) has been applied. Labs Laboratory Tests Test 11/27/18 11:30 11/27/18 13:20 11/27/18 16:37 11/27/18 23:50 Glucose (Fingerstick) 158 mg/dL (70-99) 154 mg/dL (70-99) Lactic Acid Level 2.5 mmol/L (0.4-2.0) Troponin I Quantitative 0.115 ng/mL (0.000-0.055) Urine Collection Type Unknown Urine Color Yellow Urine Clarity Clear Urine pH 5.0 Urine Specific [place] 1.025 Urine Protein Negative mg/dL (NEG-TRACE) Urine Glucose (UA) Negative mg/dL (NEG) Urine Ketones (Stick) Negative mg/dL (NEG) Urine Blood Negative (NEG) Urine Nitrite Negative (NEG) Urine Bilirubin Negative (NEG) Urine Urobilinogen Dipstick 0.2 mg/dL (0.2 mg/dL) Urine Leukocyte Esterase Negative (NEG) Urine RBC 6-10 /HPF (0-2) Urine WBC 0 /HPF (0-4) Urine Squamous Epithelial Cells Mod /LPF Urine Amorphous Sediment Present /HPF Urine Bacteria 0 /HPF (0-FEW) Urine Mucus Marked /LPF Test 11/28/18 03:45 11/28/18 07:18 11/28/18 11:36 11/28/18 17:14 White Blood Count 12.4 x10^3/uL (4.0-11.0) Red Blood Count 3.18 x10^6/uL (4.30-5.70) Hemoglobin 10.3 g/dL (13.0-17.5) Hematocrit 30.9 % (39.0-53.0) Mean Corpuscular Volume 97 fL (79-100) Mean Corpuscular Hemoglobin 33 pg (25-35) Mean Corpuscular Hemoglobin Concent 34 g/dL (31-37) Red Cell Distribution Width 13.3 % (11.5-14.5) Platelet Count 109 x10^3/uL (140-400) Neutrophils (%) (Auto) 86 % (31-73) Lymphocytes (%) (Auto) 8 % (24-48) Monocytes (%) (Auto) 5 % (0-9) Eosinophils (%) (Auto) 1 % (0-3) Basophils (%) (Auto) 0 % (0-3) Neutrophils # (Auto) 10.7 x10^3uL (1.8-7.7) Lymphocytes # (Auto) 0.9 x10^3/uL (1.0-4.8) Monocytes # (Auto) 0.7 x10^3/uL (0.0-1.1) Eosinophils # (Auto) 0.1 x10^3/uL (0.0-0.7) Basophils # (Auto) 0.0 x10^3/uL (0.0-0.2) Prothrombin Time 23.7 SEC (11.7-14.0) Prothromb Time International Ratio 2.1 (0.8-1.1) Sodium Level 139 mmol/L (136-145) Potassium Level 3.7 mmol/L (3.5-5.1) Chloride Level 103 mmol/L (98-107) Carbon Dioxide Level 29 mmol/L (21-32) Anion Gap 7 (6-14) Blood Urea Nitrogen 26 mg/dL (8-26) Creatinine 1.0 mg/dL (0.7-1.3) Estimated GFR (Cockcroft-Gault) 71.9 BUN/Creatinine Ratio 26 (6-20) Glucose Level 133 mg/dL (70-99) Hemoglobin A1c 7.2 % (4.8-5.6) Calcium Level 8.3 mg/dL (8.5-10.1) Total Bilirubin 1.3 mg/dL (0.2-1.0) Aspartate Amino Transf (AST/SGOT) 16 U/L (15-37) Alanine Aminotransferase (ALT/SGPT) 27 U/L (16-63) Alkaline Phosphatase 42 U/L (46-116) Troponin I Quantitative 0.048 ng/mL (0.000-0.055) Total Protein 4.7 g/dL (6.4-8.2) Albumin 2.3 g/dL (3.4-5.0) Albumin/Globulin Ratio 1.0 (1.0-1.7) Glucose (Fingerstick) 130 mg/dL (70-99) 167 mg/dL (70-99) 166 mg/dL (70-99) Test 11/28/18 20:54 11/29/18 04:00 11/29/18 07:20 Glucose (Fingerstick) 218 mg/dL (70-99) 158 mg/dL (70-99) White Blood Count 8.0 x10^3/uL (4.0-11.0) Red Blood Count 3.11 x10^6/uL (4.30-5.70) Hemoglobin 10.2 g/dL (13.0-17.5) Hematocrit 30.3 % (39.0-53.0) Mean Corpuscular Volume 98 fL (79-100) Mean Corpuscular Hemoglobin 33 pg (25-35) Mean Corpuscular Hemoglobin Concent 34 g/dL (31-37) Red Cell Distribution Width 13.5 % (11.5-14.5) Platelet Count 100 x10^3/uL (140-400) Neutrophils (%) (Auto) 80 % (31-73) Lymphocytes (%) (Auto) 10 % (24-48) Monocytes (%) (Auto) 7 % (0-9) Eosinophils (%) (Auto) 3 % (0-3) Basophils (%) (Auto) 0 % (0-3) Neutrophils # (Auto) 6.4 x10^3uL (1.8-7.7) Lymphocytes # (Auto) 0.8 x10^3/uL (1.0-4.8) Monocytes # (Auto) 0.6 x10^3/uL (0.0-1.1) Eosinophils # (Auto) 0.2 x10^3/uL (0.0-0.7) Basophils # (Auto) 0.0 x10^3/uL (0.0-0.2) Prothrombin Time 18.6 SEC (11.7-14.0) Prothromb Time International Ratio 1.6 (0.8-1.1) Sodium Level 139 mmol/L (136-145) Potassium Level 3.5 mmol/L (3.5-5.1) Chloride Level 104 mmol/L (98-107) Carbon Dioxide Level 28 mmol/L (21-32) Anion Gap 7 (6-14) Blood Urea Nitrogen 20 mg/dL (8-26) Creatinine 0.9 mg/dL (0.7-1.3) Estimated GFR (Cockcroft-Gault) 81.2 Glucose Level 148 mg/dL (70-99) Calcium Level 8.3 mg/dL (8.5-10.1) Laboratory Tests Test 11/28/18 11:36 11/28/18 17:14 11/28/18 20:54 11/29/18 04:00 Glucose (Fingerstick) 167 mg/dL (70-99) 166 mg/dL (70-99) 218 mg/dL (70-99) White Blood Count 8.0 x10^3/uL (4.0-11.0) Red Blood Count 3.11 x10^6/uL (4.30-5.70) Hemoglobin 10.2 g/dL (13.0-17.5) Hematocrit 30.3 % (39.0-53.0) Mean Corpuscular Volume 98 fL (79-100) Mean Corpuscular Hemoglobin 33 pg (25-35) Mean Corpuscular Hemoglobin Concent 34 g/dL (31-37) Red Cell Distribution Width 13.5 % (11.5-14.5) Platelet Count 100 x10^3/uL (140-400) Neutrophils (%) (Auto) 80 % (31-73) Lymphocytes (%) (Auto) 10 % (24-48) Monocytes (%) (Auto) 7 % (0-9) Eosinophils (%) (Auto) 3 % (0-3) Basophils (%) (Auto) 0 % (0-3) Neutrophils # (Auto) 6.4 x10^3uL (1.8-7.7) Lymphocytes # (Auto) 0.8 x10^3/uL (1.0-4.8) Monocytes # (Auto) 0.6 x10^3/uL (0.0-1.1) Eosinophils # (Auto) 0.2 x10^3/uL (0.0-0.7) Basophils # (Auto) 0.0 x10^3/uL (0.0-0.2) Prothrombin Time 18.6 SEC (11.7-14.0) Prothromb Time International Ratio 1.6 (0.8-1.1) Sodium Level 139 mmol/L (136-145) Potassium Level 3.5 mmol/L (3.5-5.1) Chloride Level 104 mmol/L (98-107) Carbon Dioxide Level 28 mmol/L (21-32) Anion Gap 7 (6-14) Blood Urea Nitrogen 20 mg/dL (8-26) Creatinine 0.9 mg/dL (0.7-1.3) Estimated GFR (Cockcroft-Gault) 81.2 Glucose Level 148 mg/dL (70-99) Calcium Level 8.3 mg/dL (8.5-10.1) Test 11/29/18 07:20 Glucose (Fingerstick) 158 mg/dL (70-99) Microbiology 11/27/18 Blood Culture - Preliminary, Resulted NO GROWTH AFTER 1 DAY Medications Current Medications Acetaminophen (Tylenol) 1,000 mg 1X ONCE PO Last administered on 11/27/18 09: 01; Start 11/27/18 at 08:45; Stop 11/27/18 at 08:46; Status DC Vancomycin HCl (Vanco Per Pharmacy) 1 each PRN DAILY PRN MC SEE COMMENTS Last administered on 11/27/18at 12:45; Start 11/27/18 at 09:15; Stop 11/27/18 at 13:04 ; Status DC Vancomycin HCl 2 gm/Sodium Chloride 500 ml @ 250 mls/hr 1X ONCE IV Last administered on 11/27/18at 09:51; Start 11/27/18 at 09:30; Stop 11/27/18 at 11:29 ; Status DC Ondansetron HCl (Zofran) 4 mg PRN Q8HRS PRN IV NAUSEA/VOMITING; Start 11/27/18 at 10:15; Stop 11/28/18 at 10:14; Status DC Vancomycin HCl 1.5 gm/Sodium Chloride 500 ml @ 250 mls/hr Q24H IV Last administered on 11/28/18at 09:38; Start 11/28/18 at 10:00 Vancomycin HCl (Vancomycin Trough Level) 1 each 1X ONCE MC ; Start 11/29/18 at 09:30; Stop 11/29/18 at 09:31 Vancomycin HCl (Vanco Per Pharmacy) 1 each PRN DAILY PRN MC SEE COMMENTS Last administered on 11/28/18at 11:49; Start 11/27/18 at 13:15 Albuterol Sulfate (Ventolin Neb Soln) 2.5 mg PRN Q6HRS PRN INH SHORTNESS OF BREATH; Start 11/27/18 at 13:45; Stop 11/28/18 at 01:10; Status DC Aspirin (Ecotrin) 81 mg DAILY PO Last administered on 11/28/18at 09:39; Start at 09:00 Cyanocobalamin (Vitamin B-12) 100 mcg DAILY PO Last administered on 11/28/18at 09:38; Start 11/28/18 at 09:00 Furosemide (Lasix) 40 mg DAILY PO Last administered on 11/28/18at 09:39; Start 11/28/18 at 09:00 Lisinopril (Prinivil) 20 mg DAILY PO Last administered on 11/28/18 09:39; Start 11/28/18 at 09:00 Labetalol HCl (Trandate) 200 mg BID PO Last administered on 11/28/18at 21:04; Start 11/27/18 at 21:00; Stop 11/29/18 at 07:59; Status DC Atorvastatin Calcium (Lipitor) 10 mg QHS PO Last administered on 11/28/18at 21: 03; Start 11/27/18 at 21:00 Warfarin Sodium (Coumadin) 5 mg 1X WARF ONCE PO ; Start 11/27/18 at 16:00; Stop 11/27/18 at 16:01; Status DC Warfarin Sodium (Coumadin Per Pharmacy) 1 each PRN DAILY PRN MC SEE COMMENTS Last administered on 11/28/18at 11:47; Start 11/27/18 at 13:45 Sodium Chloride 1,000 ml @ 125 mls/hr 1X ONCE IV Last administered on at 15:23; Start 11/27/18 at 14:00; Stop 11/27/18 at 21:59; Status DC Albuterol/ Ipratropium (Duoneb) 3 ml RTQID NEB ; Start 11/28/18 at 01:15; Stop 11/28/18 at 01:15; Status DC Warfarin Sodium (Coumadin) 5 mg 1X WARF ONCE PO Last administered on at 17:02; Start 11/28/18 at 16:00; Stop 11/28/18 at 16:01; Status DC Lactobacillus Rhamnosus (Culturelle) 1 cap BID PO Last administered on at 21:03; Start 11/28/18 at 21:00 Metoprolol Succinate (Toprol Xl) 50 mg DAILY PO ; Start 11/29/18 at 09:00 Active Scripts Active Proair Hfa Inhaler (Albuterol Sulfate) 8.5 Gm Hfa.aer.ad 1 Puff INH PRN Q6HRS PRN 14 Days Doxycycline Hyclate 100 Mg Tablet 100 Mg PO BID MDD 1 Reported Warfarin Sodium 5 Mg Tablet 5 Mg PO DAILY Warfarin Sodium 7.5 Mg Tablet 7.5 Mg PO QTU Warfarin Sodium 5 Mg Tablet 5 Mg PO DAILY TAKES M,W,TH,FR, VERDUGO Warfarin Sodium 7.5 Mg Tablet 7.5 Mg PO QSA Furosemide 40 Mg Tablet 1 Tab PO DAILY Vitamin B-12 (Cyanocobalamin (Vitamin B-12)) 100 Mcg Tablet 100 Mcg PO Aspir 81 (Aspirin) 81 Mg Tablet.dr 81 Mg PO DAILY Lisinopril 20 Mg Tablet 20 Mg PO DAILY Labetalol Hcl 200 Mg Tablet 200 Mg PO BID Lovastatin 40 Mg Tablet 40 Mg PO BID Vitals/I & O Vital Sign - Last 24 Hours 11/28/18 11/28/18 11/28/18 11/28/18 09:39 09:40 11:00 14:39 Temp 97.8 98.0 97.8 98.0 Pulse 103 103 61 53 Resp 16 16 B/P (MAP) 112/45 112/45 119/55 (76) 101/52 (68) Pulse Ox 98 97 O2 Delivery Room Air Room Air 11/28/18 11/28/18 11/28/18 11/28/18 19:05 20:00 21:04 23:10 Temp 98.4 98.5 98.4 98.5 Pulse 60 60 60 Resp 20 20 B/P (MAP) 103/56 (72) 103/56 115/57 (76) Pulse Ox 94 94 O2 Delivery Room Air Room Air Room Air 11/29/18 11/29/18 03:15 07:15 Temp 98.7 97.9 98.7 97.9 Pulse 59 60 Resp 20 18 B/P (MAP) 112/55 (74) 124/60 (81) Pulse Ox 95 96 O2 Delivery Nasal Cannula Nasal Cannula Intake and Output 11/28/18 11/28/18 11/29/18 15:00 23:00 07:00 Intake Total 150 ml Balance 150 ml GLENN BHANDARI MD Nov 29, 2018 09:01
[2018-11-29] MEDS: METOPROLOL SUCC 24HR ER 50 MG TAB.ER.24H. PO SCH (09:03)
[2018-11-29] MEDS: CYANOCOBALAMIN (VITAMIN B-12) 100 MCG TABLET PO SCH (09:04)
[2018-11-29] MEDS: LACTOBACILLUS RHAMNOSUS GG 1 CAPSULE. PO SCH ×2 (09:04→20:49)
[2018-11-29] MEDS: FUROSEMIDE 40 MG TABLET. PO SCH (09:04)
[2018-11-29] MEDS: LISINOPRIL 20 MG TABLET PO SCH (09:05)
[2018-11-29] MEDS: ASPIRIN ENTERIC COATED 81 MG TABLET.DR. PO SCH (09:06)
[2018-11-29 09:52] LABS: VANC TR 8.8 mcg/mL (10.0-20.0)
[2018-11-29] MEDS: VANCOMYCIN 1.5 GM in IV NORMAL SALINE 500ML BAG 500 ML IV SCH (10:19)
[2018-11-29 11:13] VITALS: BP 118/59
--- NOTE | 2018-11-29 12:40 | PDOC ---
Infectious Disease Note Subjective Subjective pt is known to us, returned with fever, chills, leukocytosis, now has rt lower ext cellulitis Records reviewed pt is feeling better, ROS ROS no n/v/d/sob/fever/pain rt leg pain is better and redness improving says Vital Sign Vital Signs Vital Signs Date Time Temp Pulse Resp B/P (MAP) Pulse Ox O2 Delivery O2 Flow Rate FiO2 11/29/18 11:13 98.0 65 20 118/59 (78) 96 Nasal Cannula 98.0 11/28/18 08:00 2.0 Physical Exam PHYSICAL EXAM GENERAL: Alert, oriented x 3 male lying in bed comfortably, in no acute distress, cooperative, pleasant. HEENT: Normocephalic, atraumatic, anicteric. No thrush. Oral mucosa moist. RT ear some blood stained drainage NECK: Supple. No lymphadenopathy. LUNGS: Bilateral coarse breath sounds, wheezing + CARDIOVASCULAR: S1, S2, no gallops or murmurs. ABDOMEN: Soft, nontender, nondistended. No rebound, no guarding. EXTREMITIES: No edema, no cyanosis, no clubbing. NEUROLOGIC: Alert, awake, follows commands, moves all four extremities. DERMATOLOGICAL: Warm, dry, no generalized rash. rt leg slightly red and warm MUSCULOSKELETAL: No joint effusion. No decrease in range of motion. Labs Lab Laboratory Tests Test 11/28/18 17:14 11/28/18 20:54 11/29/18 04:00 11/29/18 07:20 Glucose (Fingerstick) 166 mg/dL (70-99) 218 mg/dL (70-99) 158 mg/dL (70-99) White Blood Count 8.0 x10^3/uL (4.0-11.0) Red Blood Count 3.11 x10^6/uL (4.30-5.70) Hemoglobin 10.2 g/dL (13.0-17.5) Hematocrit 30.3 % (39.0-53.0) Mean Corpuscular Volume 98 fL (79-100) Mean Corpuscular Hemoglobin 33 pg (25-35) Mean Corpuscular Hemoglobin Concent 34 g/dL (31-37) Red Cell Distribution Width 13.5 % (11.5-14.5) Platelet Count 100 x10^3/uL (140-400) Neutrophils (%) (Auto) 80 % (31-73) Lymphocytes (%) (Auto) 10 % (24-48) Monocytes (%) (Auto) 7 % (0-9) Eosinophils (%) (Auto) 3 % (0-3) Basophils (%) (Auto) 0 % (0-3) Neutrophils # (Auto) 6.4 x10^3uL (1.8-7.7) Lymphocytes # (Auto) 0.8 x10^3/uL (1.0-4.8) Monocytes # (Auto) 0.6 x10^3/uL (0.0-1.1) Eosinophils # (Auto) 0.2 x10^3/uL (0.0-0.7) Basophils # (Auto) 0.0 x10^3/uL (0.0-0.2) Prothrombin Time 18.6 SEC (11.7-14.0) Prothromb Time International Ratio 1.6 (0.8-1.1) Sodium Level 139 mmol/L (136-145) Potassium Level 3.5 mmol/L (3.5-5.1) Chloride Level 104 mmol/L (98-107) Carbon Dioxide Level 28 mmol/L (21-32) Anion Gap 7 (6-14) Blood Urea Nitrogen 20 mg/dL (8-26) Creatinine 0.9 mg/dL (0.7-1.3) Estimated GFR (Cockcroft-Gault) 81.2 Glucose Level 148 mg/dL (70-99) Calcium Level 8.3 mg/dL (8.5-10.1) Test 11/29/18 09:20 11/29/18 10:50 Vancomycin Level Trough 8.8 mcg/mL (10.0-20.0) Vancomycin Last Dose Date 11/28/18 Vancomycin Last Dose Time 1000 Glucose (Fingerstick) 170 mg/dL (70-99) Micro Microbiology 11/27/18 Blood Culture - Preliminary, Resulted NO GROWTH AFTER 2 DAYS Objective Assessment 1. Fever, improved 2. Acute exacerbation of chronic obstructive pulmonary disease. 3. Rt lower ext cellulitis 4. Type 2 diabetes. 5. Dizziness, resolved. 6. CT chest neg for pneumonia 7. Coronary artery disease, status post coronary artery bypass grafting. 8. Hypertension/hyperlipidemia. Plan Plan of Care change vanc to omnicef leg elevation pt/ot HARSHA ALBARRAN MD Nov 29, 2018 12:40
[2018-11-29] MEDS: CEFDINIR 300 MG CAPSULE PO SCH ×2 (13:49→20:49)
[2018-11-29 15:03] VITALS: BP 114/61
--- NOTE | 2018-11-29 17:02 | PDOC ---
CARDIO Progress Notes Date and Time Date of Service 11/29/2018 Time of Evaluation 1610 Subjective Subjective: No Chest Pain, No shortness of breath, No Palpitations Vitals Vitals Vital Signs Date Time Temp Pulse Resp B/P (MAP) Pulse Ox O2 Delivery O2 Flow Rate FiO2 11/29/18 15:03 97.9 86 20 114/61 (78) 96 Nasal Cannula 2.0 97.9 Weight Weight [ ] Input and Output Intake and Output Intake and Output 11/29/18 07:00 Intake Total 150 ml Balance 150 ml Intake Oral 150 ml # Voids 3 Laboratory Labs Laboratory Tests Test 11/28/18 17:14 11/28/18 20:54 11/29/18 04:00 11/29/18 07:20 Glucose (Fingerstick) 166 mg/dL (70-99) 218 mg/dL (70-99) 158 mg/dL (70-99) White Blood Count 8.0 x10^3/uL (4.0-11.0) Red Blood Count 3.11 x10^6/uL (4.30-5.70) Hemoglobin 10.2 g/dL (13.0-17.5) Hematocrit 30.3 % (39.0-53.0) Mean Corpuscular Volume 98 fL (79-100) Mean Corpuscular Hemoglobin 33 pg (25-35) Mean Corpuscular Hemoglobin Concent 34 g/dL (31-37) Red Cell Distribution Width 13.5 % (11.5-14.5) Platelet Count 100 x10^3/uL (140-400) Neutrophils (%) (Auto) 80 % (31-73) Lymphocytes (%) (Auto) 10 % (24-48) Monocytes (%) (Auto) 7 % (0-9) Eosinophils (%) (Auto) 3 % (0-3) Basophils (%) (Auto) 0 % (0-3) Neutrophils # (Auto) 6.4 x10^3uL (1.8-7.7) Lymphocytes # (Auto) 0.8 x10^3/uL (1.0-4.8) Monocytes # (Auto) 0.6 x10^3/uL (0.0-1.1) Eosinophils # (Auto) 0.2 x10^3/uL (0.0-0.7) Basophils # (Auto) 0.0 x10^3/uL (0.0-0.2) Prothrombin Time 18.6 SEC (11.7-14.0) Prothromb Time International Ratio 1.6 (0.8-1.1) Sodium Level 139 mmol/L (136-145) Potassium Level 3.5 mmol/L (3.5-5.1) Chloride Level 104 mmol/L (98-107) Carbon Dioxide Level 28 mmol/L (21-32) Anion Gap 7 (6-14) Blood Urea Nitrogen 20 mg/dL (8-26) Creatinine 0.9 mg/dL (0.7-1.3) Estimated GFR (Cockcroft-Gault) 81.2 Glucose Level 148 mg/dL (70-99) Calcium Level 8.3 mg/dL (8.5-10.1) Test 11/29/18 09:20 11/29/18 10:50 11/29/18 16:42 Vancomycin Level Trough 8.8 mcg/mL (10.0-20.0) Vancomycin Last Dose Date 11/28/18 Vancomycin Last Dose Time 1000 Glucose (Fingerstick) 170 mg/dL (70-99) 141 mg/dL (70-99) Microbiology Micro Microbiology 11/27/18 Blood Culture - Preliminary, Resulted NO GROWTH AFTER 2 DAYS Physical Exam HEENT: Neck Supple W Full Motion Chest: Symmetric LUNGS: Clear to Auscultation Heart: S1S2, RRR (paced), no gallops Abdomen: Soft N/T Extremities: Other (RLE tenderness with mild erythema, 2+ bilateral LE pitting edema) Neurology: alert, oriented, follow commands Assessment Assessment doing well cardiac gonsalez compensated 1. RLE cellulitis with fever: per ID 2. Elevated trop; peak 0.115. CP free. Most probably type II, demand ischemia in the setting of acute infection. 3. Chronic systolic/diastolic HF. compensated 4. CAD: remote CABG. Stable. CP free 5. ICM: LVEF 40-45% 6. SSS s/p PPM in situ([employer]). 8. PAFIB; chronic anticoagulation with Coumadin; INR 1.6 8. HTN; controlled. 9. DM2/HLP; statin Recommendations Secondary prevention measures; ASA, BB, ACEi, statin Continue oral Lasix Warfarin for stroke prevention Consider further ischemic workup on an outpatient basis Will follow along peripherally ADRIAN HERRON APRN Nov 29, 2018 17:02
--- NOTE | 2018-11-29 17:18 | NUR ---
Pharmacy Warfarin Dosing Note S:Pharmacy consulted to assist with anticoagulation therapy started with target INR: 2 -3 O:HOPE ARAIZA is a 78 year old M with Atrial Fibrillation LABS: Last INR: 1.6 Last HGB: 12.8 Last HCT: 38.3 Last PLT: 138 Last dose of 5 mg given on 11/28/18 at 1700 Previous Regimen: 7.5MG TUSA; 5MG ROW Vitamin K given: N Drug Interaction Changes: Ongoing Drug Interactions: A:INR of 1.6 is below desired range. Target range for this patient is: 2 -3 P: Warfarin dose: 7.5 mg Today at 1600 Bridge Therapy: None Next INR due IN AM Pharmacy anticoagulation service will continue to follow. DENZEL OLEARY [facility], 11/29/18 [id number]
[2018-11-29] MEDS ORDERED: WARFARIN 7.5 MG TABLET. PO ONE (17:30)
[2018-11-29 19:52] VITALS: BP 115/59
[2018-11-29] MEDS: ATORVASTATIN CALCIUM 10 MG TABLET. PO SCH (20:49)
--- NOTE | 2018-11-29 22:49 | RAD ---
Ultrasound venous Doppler INDICATION:BILAT LEG SWELLING PAIN TECHNIQUE: Grayscale, color Doppler and spectral waveform ultrasound images of the bilateral lower extremities deep veins obtained. COMPARISON: None FINDINGS: The interrogated deep veins are compressible and demonstrate evidence of blood flow with normal respiratory variation and response to augmentation. IMPRESSION: No sonographic evidence of acute DVT of the bilateral lower extremity deep veins. Electronically signed by: Easton Hayward DO (11/29/2018 10:46 PM) [facility]
[2018-11-29 23:19] VITALS: BP 121/58
[2018-11-30 03:39] VITALS: BP 124/63
[2018-11-30 05:59] LABS: BASO % 0 % (0-3); EOS # 0.2 x10^3/uL (0.0-0.7); EOS % 3 % (0-3); HEMATOCRIT 30.3 % (39.0-53.0); HEMOGLOBIN 10.1 g/dL (13.0-17.5); LYMPH # 0.7 x10^3/uL (1.0-4.8); LYMPH % 11 % (24-48); MEAN CORPUSCULAR HEMOGLOBIN 32 pg (25-35); MEAN CORPUSCULAR HGB CONC 33 g/dL (31-37); MEAN CORPUSCULAR VOLUME 97 fL (79-100); MONO # 0.5 x10^3/uL (0.0-1.1); MONO % 8 % (0-9); NEUT % 78 % (31-73); PLATELET COUNT 90 x10^3/uL (140-400); RED BLOOD COUNT 3.13 x10^6/uL (4.30-5.70); RED CELL DISTRIBUTION WIDTH 13.4 % (11.5-14.5); WHITE BLOOD COUNT 6.4 x10^3/uL (4.0-11.0)
[2018-11-30 06:12] LABS: PROTHROMBIN TIME PATIENT 20.2 SEC (11.7-14.0)
[2018-11-30 07:12] VITALS: BP 133/61
[2018-11-30] MEDS: CYANOCOBALAMIN (VITAMIN B-12) 100 MCG TABLET PO SCH (08:34)
[2018-11-30] MEDS: CEFDINIR 300 MG CAPSULE PO SCH (08:35)
[2018-11-30] MEDS: FUROSEMIDE 40 MG TABLET. PO SCH (08:35)
[2018-11-30] MEDS: ASPIRIN ENTERIC COATED 81 MG TABLET.DR. PO SCH (08:35)
[2018-11-30] MEDS: LACTOBACILLUS RHAMNOSUS GG 1 CAPSULE. PO SCH (08:35)
[2018-11-30] MEDS: LISINOPRIL 20 MG TABLET PO SCH (08:36)
--- NOTE | 2018-11-30 09:12 | PDOC ---
PROGRESS NOTES History of Present Illness History of Present Illness discharge dx sepsis, source unknown fever and leukocytosis right lower leg cellulitis looks better 11/30 PO OMNICEF COPD recent Pneumonia left lower lobe recent Febrile illness likely Resp viral illness with superimposed bacterial [facility] Type 2 diabetes. Dizziness, resolved. Headache. Could be from viral illness, now resolved Coronary artery disease, status post coronary artery bypass grafting. Hypertension/hyperlipidemia. Rt ear pain on cefdinir prior to admission 11/19 Obesity. 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 Cerebral volume loss. Paranasal sinus disease, partially included on the [id number]. ON CT 11/19 11/30 No sonographic evidence of acute DVT of the bilateral lower extremity deep veins. obesity, BMI 33 htn admit po omnicef leg elevation ct chest REVIEWED IMAGES PERSONALLY accuchecks, a1c home today Vitals Vitals Vital Signs Date Time Temp Pulse Resp B/P (MAP) Pulse Ox O2 Delivery O2 Flow Rate FiO2 11/30/18 08:36 60 133/61 11/30/18 07:12 98.1 20 97 Room Air 98.1 11/29/18 23:19 2.0 Physical Exam Physical Exam GENERAL: Alert, oriented x 3 male lying in bed comfortably, in no acute distress, cooperative, pleasant. HEENT: Normocephalic, atraumatic, anicteric. No thrush. Oral mucosa moist. RT ear some blood stained drainage NECK: Supple. No lymphadenopathy. LUNGS: Bilateral coarse breath sounds, no wheezing CARDIOVASCULAR: S1, S2, no gallops or murmurs. ABDOMEN: Soft, nontender, nondistended. No rebound, no guarding. EXTREMITIES: No edema, no cyanosis, no clubbing. NEUROLOGIC: Alert, awake, follows commands, moves all four extremities. DERMATOLOGICAL: Warm, dry, no generalized rash. rt leg less red and warm MUSCULOSKELETAL: No joint effusion. No decrease in range of motion. General: Alert, Oriented X3, Cooperative, No acute distress Heart: Regular rate, Normal S1, No murmurs Lungs: Clear, Other (dec rll) Abdomen: Normal bowel sounds, Soft (obese, ), No tenderness Extremities: No cyanosis, No edema, Other (right lower leg still red, warm to touch no skin breakdown) Skin: No rashes, No significant lesion Labs LABS Ultrasound venous Doppler INDICATION:BILAT LEG SWELLING PAIN TECHNIQUE: Grayscale, color Doppler and spectral waveform ultrasound images of the bilateral lower extremities deep veins obtained. COMPARISON: None FINDINGS: The interrogated deep veins are compressible and demonstrate evidence of blood flow with normal respiratory variation and response to augmentation. IMPRESSION: No sonographic evidence of acute DVT of the bilateral lower extremity deep veins. Electronically signed by: Easton Hayward DO (11/29/2018 10:46 PM) [facility] Laboratory Tests Test 11/29/18 09:20 11/29/18 10:50 11/29/18 16:42 11/29/18 21:23 Vancomycin Level Trough 8.8 mcg/mL (10.0-20.0) Vancomycin Last Dose Date 11/28/18 Vancomycin Last Dose Time 1000 Glucose (Fingerstick) 170 mg/dL (70-99) 141 mg/dL (70-99) 179 mg/dL (70-99) Test 11/30/18 05:00 11/30/18 07:22 White Blood Count 6.4 x10^3/uL (4.0-11.0) Red Blood Count 3.13 x10^6/uL (4.30-5.70) Hemoglobin 10.1 g/dL (13.0-17.5) Hematocrit 30.3 % (39.0-53.0) Mean Corpuscular Volume 97 fL (79-100) Mean Corpuscular Hemoglobin 32 pg (25-35) Mean Corpuscular Hemoglobin Concent 33 g/dL (31-37) Red Cell Distribution Width 13.4 % (11.5-14.5) Platelet Count 90 x10^3/uL (140-400) Neutrophils (%) (Auto) 78 % (31-73) Lymphocytes (%) (Auto) 11 % (24-48) Monocytes (%) (Auto) 8 % (0-9) Eosinophils (%) (Auto) 3 % (0-3) Basophils (%) (Auto) 0 % (0-3) Neutrophils # (Auto) 5.0 x10^3uL (1.8-7.7) Lymphocytes # (Auto) 0.7 x10^3/uL (1.0-4.8) Monocytes # (Auto) 0.5 x10^3/uL (0.0-1.1) Eosinophils # (Auto) 0.2 x10^3/uL (0.0-0.7) Basophils # (Auto) 0.0 x10^3/uL (0.0-0.2) Prothrombin Time 20.2 SEC (11.7-14.0) Prothromb Time International Ratio 1.8 (0.8-1.1) Glucose (Fingerstick) 140 mg/dL (70-99) Assessment and Plan Assessmemt and Plan Problems Medical Problems: (1) Cellulitis of right leg Status: Acute (2) Sepsis Status: Acute Comment Review of Relevant I have reviewed the following items gerda (where applicable) has been applied. Labs Laboratory Tests Test 11/28/18 11:36 11/28/18 17:14 11/28/18 20:54 11/29/18 04:00 Glucose (Fingerstick) 167 mg/dL (70-99) 166 mg/dL (70-99) 218 mg/dL (70-99) White Blood Count 8.0 x10^3/uL (4.0-11.0) Red Blood Count 3.11 x10^6/uL (4.30-5.70) Hemoglobin 10.2 g/dL (13.0-17.5) Hematocrit 30.3 % (39.0-53.0) Mean Corpuscular Volume 98 fL (79-100) Mean Corpuscular Hemoglobin 33 pg (25-35) Mean Corpuscular Hemoglobin Concent 34 g/dL (31-37) Red Cell Distribution Width 13.5 % (11.5-14.5) Platelet Count 100 x10^3/uL (140-400) Neutrophils (%) (Auto) 80 % (31-73) Lymphocytes (%) (Auto) 10 % (24-48) Monocytes (%) (Auto) 7 % (0-9) Eosinophils (%) (Auto) 3 % (0-3) Basophils (%) (Auto) 0 % (0-3) Neutrophils # (Auto) 6.4 x10^3uL (1.8-7.7) Lymphocytes # (Auto) 0.8 x10^3/uL (1.0-4.8) Monocytes # (Auto) 0.6 x10^3/uL (0.0-1.1) Eosinophils # (Auto) 0.2 x10^3/uL (0.0-0.7) Basophils # (Auto) 0.0 x10^3/uL (0.0-0.2) Prothrombin Time 18.6 SEC (11.7-14.0) Prothromb Time International Ratio 1.6 (0.8-1.1) Sodium Level 139 mmol/L (136-145) Potassium Level 3.5 mmol/L (3.5-5.1) Chloride Level 104 mmol/L (98-107) Carbon Dioxide Level 28 mmol/L (21-32) Anion Gap 7 (6-14) Blood Urea Nitrogen 20 mg/dL (8-26) Creatinine 0.9 mg/dL (0.7-1.3) Estimated GFR (Cockcroft-Gault) 81.2 Glucose Level 148 mg/dL (70-99) Calcium Level 8.3 mg/dL (8.5-10.1) Test 11/29/18 07:20 11/29/18 09:20 11/29/18 10:50 11/29/18 16:42 Glucose (Fingerstick) 158 mg/dL (70-99) 170 mg/dL (70-99) 141 mg/dL (70-99) Vancomycin Level Trough 8.8 mcg/mL (10.0-20.0) Vancomycin Last Dose Date 11/28/18 Vancomycin Last Dose Time 1000 Test 11/29/18 21:23 11/30/18 05:00 11/30/18 07:22 Glucose (Fingerstick) 179 mg/dL (70-99) 140 mg/dL (70-99) White Blood Count 6.4 x10^3/uL (4.0-11.0) Red Blood Count 3.13 x10^6/uL (4.30-5.70) Hemoglobin 10.1 g/dL (13.0-17.5) Hematocrit 30.3 % (39.0-53.0) Mean Corpuscular Volume 97 fL (79-100) Mean Corpuscular Hemoglobin 32 pg (25-35) Mean Corpuscular Hemoglobin Concent 33 g/dL (31-37) Red Cell Distribution Width 13.4 % (11.5-14.5) Platelet Count 90 x10^3/uL (140-400) Neutrophils (%) (Auto) 78 % (31-73) Lymphocytes (%) (Auto) 11 % (24-48) Monocytes (%) (Auto) 8 % (0-9) Eosinophils (%) (Auto) 3 % (0-3) Basophils (%) (Auto) 0 % (0-3) Neutrophils # (Auto) 5.0 x10^3uL (1.8-7.7) Lymphocytes # (Auto) 0.7 x10^3/uL (1.0-4.8) Monocytes # (Auto) 0.5 x10^3/uL (0.0-1.1) Eosinophils # (Auto) 0.2 x10^3/uL (0.0-0.7) Basophils # (Auto) 0.0 x10^3/uL (0.0-0.2) Prothrombin Time 20.2 SEC (11.7-14.0) Prothromb Time International Ratio 1.8 (0.8-1.1) Laboratory Tests Test 11/29/18 09:20 11/29/18 10:50 11/29/18 16:42 11/29/18 21:23 Vancomycin Level Trough 8.8 mcg/mL (10.0-20.0) Vancomycin Last Dose Date 11/28/18 Vancomycin Last Dose Time 1000 Glucose (Fingerstick) 170 mg/dL (70-99) 141 mg/dL (70-99) 179 mg/dL (70-99) Test 11/30/18 05:00 11/30/18 07:22 White Blood Count 6.4 x10^3/uL (4.0-11.0) Red Blood Count 3.13 x10^6/uL (4.30-5.70) Hemoglobin 10.1 g/dL (13.0-17.5) Hematocrit 30.3 % (39.0-53.0) Mean Corpuscular Volume 97 fL (79-100) Mean Corpuscular Hemoglobin 32 pg (25-35) Mean Corpuscular Hemoglobin Concent 33 g/dL (31-37) Red Cell Distribution Width 13.4 % (11.5-14.5) Platelet Count 90 x10^3/uL (140-400) Neutrophils (%) (Auto) 78 % (31-73) Lymphocytes (%) (Auto) 11 % (24-48) Monocytes (%) (Auto) 8 % (0-9) Eosinophils (%) (Auto) 3 % (0-3) Basophils (%) (Auto) 0 % (0-3) Neutrophils # (Auto) 5.0 x10^3uL (1.8-7.7) Lymphocytes # (Auto) 0.7 x10^3/uL (1.0-4.8) Monocytes # (Auto) 0.5 x10^3/uL (0.0-1.1) Eosinophils # (Auto) 0.2 x10^3/uL (0.0-0.7) Basophils # (Auto) 0.0 x10^3/uL (0.0-0.2) Prothrombin Time 20.2 SEC (11.7-14.0) Prothromb Time International Ratio 1.8 (0.8-1.1) Glucose (Fingerstick) 140 mg/dL (70-99) Microbiology 11/27/18 Blood Culture - Preliminary, Resulted NO GROWTH AFTER 2 DAYS Medications Current Medications Acetaminophen (Tylenol) 1,000 mg 1X ONCE PO Last administered on 11/27/18at 09: 01; Start 11/27/18 at 08:45; Stop 11/27/18 at 08:46; Status DC Vancomycin HCl (Vanco Per Pharmacy) 1 each PRN DAILY PRN MC SEE COMMENTS Last administered on 11/27/18at 12:45; Start 11/27/18 at 09:15; Stop 11/27/18 at 13:04 ; Status DC Vancomycin HCl 2 gm/Sodium Chloride 500 ml @ 250 mls/hr 1X ONCE IV Last administered on 11/27/18at 09:51; Start 11/27/18 at 09:30; Stop 11/27/18 at 11:29 ; Status DC Ondansetron HCl (Zofran) 4 mg PRN Q8HRS PRN IV NAUSEA/VOMITING; Start 11/27/18 at 10:15; Stop 11/28/18 at 10:14; Status DC Vancomycin HCl 1.5 gm/Sodium Chloride 500 ml @ 250 mls/hr Q24H IV Last administered on 11/29/18at 10:19; Start 11/28/18 at 10:00; Stop 11/29/18 at 12:40 ; Status DC Vancomycin HCl (Vancomycin Trough Level) 1 each 1X ONCE MC Last administered on 11/29/18 09:14; Start 11/29/18 at 09:30; Stop 11/29/18 at 09:31; Status DC Vancomycin HCl (Vanco Per Pharmacy) 1 each PRN DAILY PRN MC SEE COMMENTS Last administered on 11/28/18at 11:49; Start 11/27/18 at 13:15; Stop 11/29/18 at 17:15 ; Status DC Albuterol Sulfate (Ventolin Neb Soln) 2.5 mg PRN Q6HRS PRN INH SHORTNESS OF BREATH; Start 11/27/18 at 13:45; Stop 11/28/18 at 01:10; Status DC Aspirin (Ecotrin) 81 mg DAILY PO Last administered on 11/30/18at 08:35; Start at 09:00 Cyanocobalamin (Vitamin B-12) 100 mcg DAILY PO Last administered on 11/30/18 08:34; Start 11/28/18 at 09:00 Furosemide (Lasix) 40 mg DAILY PO Last administered on 11/30/18 08:35; Start 11/28/18 at 09:00 Lisinopril (Prinivil) 20 mg DAILY PO Last administered on 11/30/18 08:36; Start 11/28/18 at 09:00 Labetalol HCl (Trandate) 200 mg BID PO Last administered on 11/28/18 21:04; Start 11/27/18 at 21:00; Stop 11/29/18 at 07:59; Status DC Atorvastatin Calcium (Lipitor) 10 mg QHS PO Last administered on 11/29/18at 20: 49; Start 11/27/18 at 21:00 Warfarin Sodium (Coumadin) 5 mg 1X WARF ONCE PO ; Start 11/27/18 at 16:00; Stop 11/27/18 at 16:01; Status DC Warfarin Sodium (Coumadin Per Pharmacy) 1 each PRN DAILY PRN MC SEE COMMENTS Last administered on 11/29/18 17:17; Start 11/27/18 at 13:45 Sodium Chloride 1,000 ml @ 125 mls/hr 1X ONCE IV Last administered on at 15:23; Start 11/27/18 at 14:00; Stop 11/27/18 at 21:59; Status DC Albuterol/ Ipratropium (Duoneb) 3 ml RTQID NEB ; Start 11/28/18 at 01:15; Stop 11/28/18 at 01:15; Status DC Warfarin Sodium (Coumadin) 5 mg 1X WARF ONCE PO Last administered on at 17:02; Start 11/28/18 at 16:00; Stop 11/28/18 at 16:01; Status DC Lactobacillus Rhamnosus (Culturelle) 1 cap BID PO Last administered on at 08:35; Start 11/28/18 at 21:00 Metoprolol Succinate (Toprol Xl) 50 mg DAILY PO Last administered on 11/29/18at 09:03; Start 11/29/18 at 09:00 Cefdinir (Omnicef) 300 mg BID PO Last administered on 11/30/18at 08:35; Start at 13:00 Warfarin Sodium (Coumadin) 7.5 mg 1X WARF ONCE PO Last administered on at 17:44; Start 11/29/18 at 17:30; Stop 11/29/18 at 17:31; Status DC Active Scripts Active Proair Hfa Inhaler (Albuterol Sulfate) 8.5 Gm Hfa.aer.ad 1 Puff INH PRN Q6HRS PRN 14 Days Doxycycline Hyclate 100 Mg Tablet 100 Mg PO BID MDD 1 Reported Warfarin Sodium 5 Mg Tablet 5 Mg PO DAILY Warfarin Sodium 7.5 Mg Tablet 7.5 Mg PO QTU Warfarin Sodium 5 Mg Tablet 5 Mg PO DAILY TAKES M,W,TH,FR, VERDUGO Warfarin Sodium 7.5 Mg Tablet 7.5 Mg PO QSA Furosemide 40 Mg Tablet 1 Tab PO DAILY Vitamin B-12 (Cyanocobalamin (Vitamin B-12)) 100 Mcg Tablet 100 Mcg PO Aspir 81 (Aspirin) 81 Mg Tablet.dr 81 Mg PO DAILY Lisinopril 20 Mg Tablet 20 Mg PO DAILY Labetalol Hcl 200 Mg Tablet 200 Mg PO BID Lovastatin 40 Mg Tablet 40 Mg PO BID Vitals/I & O Vital Sign - Last 24 Hours 11/29/18 11/29/18 11/29/18 11/29/18 11:13 15:03 19:52 20:00 Temp 98.0 97.9 98.1 98.0 97.9 98.1 Pulse 65 86 59 Resp 20 20 16 B/P (MAP) 118/59 (78) 114/61 (78) 115/59 (77) Pulse Ox 96 96 93 O2 Delivery Nasal Cannula Nasal Cannula Room Air Room Air O2 Flow Rate 2.0 11/29/18 11/30/18 11/30/18 11/30/18 23:19 03:39 07:12 08:36 Temp 98.0 98.3 98.1 98.0 98.3 98.1 Pulse 60 59 55 60 Resp 20 16 20 B/P (MAP) 121/58 (79) 124/63 (83) 133/61 (85) 133/61 Pulse Ox 98 93 97 O2 Delivery Nasal Cannula Room Air Room Air O2 Flow Rate 2.0 Intake and Output 11/29/18 11/29/18 11/30/18 15:00 23:00 07:00 Intake Total 600 ml 460 ml Balance 600 ml 460 ml GLENN BHANDARI MD Nov 30, 2018 09:12
[2018-11-30] MEDS: METOPROLOL SUCC 24HR ER 50 MG TAB.ER.24H. PO SCH (09:14)
[2018-11-30 10:49] VITALS: BP 115/59
--- NOTE | 2018-11-30 11:13 | PDOC ---
Infectious Disease Note Subjective Subjective pt is feeling better ROS ROS no n/v/d/sob Vital Sign Vital Signs Vital Signs Date Time Temp Pulse Resp B/P (MAP) Pulse Ox O2 Delivery O2 Flow Rate FiO2 11/30/18 10:49 98.4 60 22 115/59 (77) 96 Room Air 98.4 11/29/18 23:19 2.0 Physical Exam PHYSICAL EXAM GENERAL: Alert, oriented x 3 male lying in bed comfortably, in no acute distress, cooperative, pleasant. HEENT: Normocephalic, atraumatic, anicteric. No thrush. Oral mucosa moist. RT ear some blood stained drainage NECK: Supple. No lymphadenopathy. LUNGS: Bilateral coarse breath sounds, wheezing + CARDIOVASCULAR: S1, S2, no gallops or murmurs. ABDOMEN: Soft, nontender, nondistended. No rebound, no guarding. EXTREMITIES: No edema, no cyanosis, no clubbing. NEUROLOGIC: Alert, awake, follows commands, moves all four extremities. DERMATOLOGICAL: Warm, dry, no generalized rash. rt leg slightly red and warm MUSCULOSKELETAL: No joint effusion. No decrease in range of motion. Labs Lab Laboratory Tests Test 11/29/18 16:42 11/29/18 21:23 11/30/18 05:00 11/30/18 07:22 Glucose (Fingerstick) 141 mg/dL (70-99) 179 mg/dL (70-99) 140 mg/dL (70-99) White Blood Count 6.4 x10^3/uL (4.0-11.0) Red Blood Count 3.13 x10^6/uL (4.30-5.70) Hemoglobin 10.1 g/dL (13.0-17.5) Hematocrit 30.3 % (39.0-53.0) Mean Corpuscular Volume 97 fL (79-100) Mean Corpuscular Hemoglobin 32 pg (25-35) Mean Corpuscular Hemoglobin Concent 33 g/dL (31-37) Red Cell Distribution Width 13.4 % (11.5-14.5) Platelet Count 90 x10^3/uL (140-400) Neutrophils (%) (Auto) 78 % (31-73) Lymphocytes (%) (Auto) 11 % (24-48) Monocytes (%) (Auto) 8 % (0-9) Eosinophils (%) (Auto) 3 % (0-3) Basophils (%) (Auto) 0 % (0-3) Neutrophils # (Auto) 5.0 x10^3uL (1.8-7.7) Lymphocytes # (Auto) 0.7 x10^3/uL (1.0-4.8) Monocytes # (Auto) 0.5 x10^3/uL (0.0-1.1) Eosinophils # (Auto) 0.2 x10^3/uL (0.0-0.7) Basophils # (Auto) 0.0 x10^3/uL (0.0-0.2) Prothrombin Time 20.2 SEC (11.7-14.0) Prothromb Time International Ratio 1.8 (0.8-1.1) Micro Microbiology 11/27/18 Blood Culture - Preliminary, Resulted NO GROWTH AFTER 2 DAYS Objective Assessment 1. Fever, improved 2. Acute exacerbation of chronic obstructive pulmonary disease. 3. Rt lower ext cellulitis 4. Type 2 diabetes. 5. Dizziness, resolved. 6. CT chest neg for pneumonia 7. Coronary artery disease, status post coronary artery bypass grafting. 8. Hypertension/hyperlipidemia. Plan Plan of Care omnicef leg elevation pt/ot ok to d/c HARSHA ALBARRAN MD Nov 30, 2018 11:13
--- NOTE | 2018-11-30 11:21 | NUR ---
Pharmacy Warfarin Dosing Note S:Pharmacy consulted to assist with anticoagulation therapy started with target INR: 2 -3 O:HOPE ARAIZA is a 78 year old M with Atrial Fibrillation LABS: Last INR: 1.8 Last HGB: 10.1 Last HCT: 30.3 Last PLT: 90 Last dose of 7.5 mg given on 11/29/18 at 1744 Previous Regimen: 7.5MG TUSA; 5MG ROW Vitamin K given: N Drug Interaction Changes: Ongoing Drug Interactions: A:INR of 1.8 is below desired range. Target range for this patient is: 2 -3. P: Warfarin dose: 5 mg Today at 1600. Bridge Therapy: None Next INR due tomorrow. Pharmacy anticoagulation service will continue to follow. Dwaine Lujan [facility], 11/30/18 1124
--- NOTE | 2018-11-30 14:10 | NUR ---
Pt discharged to home with family. Discharge instructions reviewed. Discussed medications, activity, diet and follow up. Omnicef was called into pts pharmacy. Verbalized instructions re: discharge.
--- NOTE | 2018-11-30 14:56 | PDOC3 ---
Discharge Summary Date of Admission: Nov 27, 2018 Date of Discharge: Nov 30, 2018 Follow-Up: 3-5 days Admitting Diagnosis comment: discharge dx sepsis, source unknown fever and leukocytosis right lower leg cellulitis looks better 11/30 PO OMNICEF x 10 days COPD recent Pneumonia left lower lobe recent Febrile illness likely Resp viral illness with superimposed bacterial SHOULDER BONER Type 2 diabetes. Dizziness, resolved. Headache. Could be from viral illness, now resolved Coronary artery disease, status post coronary artery bypass grafting. Hypertension/hyperlipidemia. Rt ear pain on cefdinir prior to admission 11/19 Obesity. 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 Cerebral volume loss. Paranasal sinus disease, partially included on the yhnkf-it-bvip. ON CT 11/19 11/30 No sonographic evidence of acute DVT of the bilateral lower extremity deep veins. obesity, BMI 33 htn admit po omnicef leg elevation ct chest REVIEWED IMAGES PERSONALLY accuchecks, a1c home today Vitals Vitals Vital Signs Date Time Temp Pulse Resp B/P (MAP) Pulse Ox O2 Delivery O2 Flow Rate FiO2 11/30/18 08:36 60 133/61 11/30/18 07:12 98.1 20 97 Room Air 98.1 11/29/18 23:19 2.0 Physical Exam Physical Exam GENERAL: Alert, oriented x 3 male lying in bed comfortably, in no acute distress, cooperative, pleasant. HEENT: Normocephalic, atraumatic, anicteric. No thrush. Oral mucosa moist. RT ear some blood stained drainage NECK: Supple. No lymphadenopathy. LUNGS: Bilateral coarse breath sounds, no wheezing CARDIOVASCULAR: S1, S2, no gallops or murmurs. ABDOMEN: Soft, nontender, nondistended. No rebound, no guarding. EXTREMITIES: No edema, no cyanosis, no clubbing. NEUROLOGIC: Alert, awake, follows commands, moves all four extremities. DERMATOLOGICAL: Warm, dry, no generalized rash. rt leg less red and warm MUSCULOSKELETAL: No joint effusion. No decrease in range of motion. General: Alert, Oriented X3, Cooperative, No acute distress Heart: Regular rate, Normal S1, No murmurs Lungs: Clear, Other (dec rll) Abdomen: Normal bowel sounds, Soft (obese, ), No tenderness Extremities: No cyanosis, No edema, Other (right lower leg still red, warm to touch no skin breakdown) Skin: No rashes, No significant lesion Labs LABS Ultrasound venous Doppler INDICATION:BILAT LEG SWELLING PAIN TECHNIQUE: Grayscale, color Doppler and spectral waveform ultrasound images of the bilateral lower extremities deep veins obtained. COMPARISON: None FINDINGS: The interrogated deep veins are compressible and demonstrate evidence of blood flow with normal respiratory variation and response to augmentation. IMPRESSION: No sonographic evidence of acute DVT of the bilateral lower extremity deep veins. Electronically signed by: Easton Hayward DO (11/29/2018 10:46 PM) [facility] FINAL DIAGNOSIS Problems Medical Problems: (1) Cellulitis of right leg Status: Acute (2) Sepsis Status: Acute Brief Hospital Course Mr. Morrell is a 78 old [sex] who presented with [ fever, cellulitis leg ] CONDITION AT DISCHARGE: Improved Discharge Medications Current Medications Acetaminophen (Tylenol) 1,000 mg 1X ONCE PO Last administered on 11/27/18at 09: 01; Start 11/27/18 at 08:45; Stop 11/27/18 at 08:46; Status DC Vancomycin HCl (Vanco Per Pharmacy) 1 each PRN DAILY PRN MC SEE COMMENTS Last administered on 11/27/18at 12:45; Start 11/27/18 at 09:15; Stop 11/27/18 at 13:04 ; Status DC Vancomycin HCl 2 gm/Sodium Chloride 500 ml @ 250 mls/hr 1X ONCE IV Last administered on 11/27/18at 09:51; Start 11/27/18 at 09:30; Stop 11/27/18 at 11:29 ; Status DC Ondansetron HCl (Zofran) 4 mg PRN Q8HRS PRN IV NAUSEA/VOMITING; Start 11/27/18 at 10:15; Stop 11/28/18 at 10:14; Status DC Vancomycin HCl 1.5 gm/Sodium Chloride 500 ml @ 250 mls/hr Q24H IV Last administered on 11/29/18at 10:19; Start 11/28/18 at 10:00; Stop 11/29/18 at 12:40 ; Status DC Vancomycin HCl (Vancomycin Trough Level) 1 each 1X ONCE MC Last administered on 11/29/18at 09:14; Start 11/29/18 at 09:30; Stop 11/29/18 at 09:31; Status DC Vancomycin HCl (Vanco Per Pharmacy) 1 each PRN DAILY PRN MC SEE COMMENTS Last administered on 11/28/18 11:49; Start 11/27/18 at 13:15; Stop 11/29/18 at 17:15 ; Status DC Albuterol Sulfate (Ventolin Neb Soln) 2.5 mg PRN Q6HRS PRN INH SHORTNESS OF BREATH; Start 11/27/18 at 13:45; Stop 11/28/18 at 01:10; Status DC Aspirin (Ecotrin) 81 mg DAILY PO Last administered on 11/30/18 08:35; Start at 09:00 Cyanocobalamin (Vitamin B-12) 100 mcg DAILY PO Last administered on 11/30/18at 08:34; Start 11/28/18 at 09:00 Furosemide (Lasix) 40 mg DAILY PO Last administered on 11/30/18at 08:35; Start 11/28/18 at 09:00 Lisinopril (Prinivil) 20 mg DAILY PO Last administered on 11/30/18at 08:36; Start 11/28/18 at 09:00 Labetalol HCl (Trandate) 200 mg BID PO Last administered on 11/28/18at 21:04; Start 11/27/18 at 21:00; Stop 11/29/18 at 07:59; Status DC Atorvastatin Calcium (Lipitor) 10 mg QHS PO Last administered on 11/29/18at 20: 49; Start 11/27/18 at 21:00 Warfarin Sodium (Coumadin) 5 mg 1X WARF ONCE PO ; Start 11/27/18 at 16:00; Stop 11/27/18 at 16:01; Status DC Warfarin Sodium (Coumadin Per Pharmacy) 1 each PRN DAILY PRN MC SEE COMMENTS Last administered on 11/30/18at 11:19; Start 11/27/18 at 13:45 Sodium Chloride 1,000 ml @ 125 mls/hr 1X ONCE IV Last administered on at 15:23; Start 11/27/18 at 14:00; Stop 11/27/18 at 21:59; Status DC Albuterol/ Ipratropium (Duoneb) 3 ml RTQID NEB ; Start 11/28/18 at 01:15; Stop 11/28/18 at 01:15; Status DC Warfarin Sodium (Coumadin) 5 mg 1X WARF ONCE PO Last administered on at 17:02; Start 11/28/18 at 16:00; Stop 11/28/18 at 16:01; Status DC Lactobacillus Rhamnosus (Culturelle) 1 cap BID PO Last administered on at 08:35; Start 11/28/18 at 21:00 Metoprolol Succinate (Toprol Xl) 50 mg DAILY PO Last administered on 11/30/18at 09:14; Start 11/29/18 at 09:00 Cefdinir (Omnicef) 300 mg BID PO Last administered on 11/30/18at 08:35; Start at 13:00 Warfarin Sodium (Coumadin) 7.5 mg 1X WARF ONCE PO Last administered on at 17:44; Start 11/29/18 at 17:30; Stop 11/29/18 at 17:31; Status DC Warfarin Sodium (Coumadin) 5 mg 1X WARF ONCE PO ; Start 11/30/18 at 16:00; Stop 11/30/18 at 16:01 Active Scripts Active Proair Hfa Inhaler (Albuterol Sulfate) 8.5 Gm Hfa.aer.ad 1 Puff INH PRN Q6HRS PRN 14 Days Doxycycline Hyclate 100 Mg Tablet 100 Mg PO BID MDD 1 Reported Warfarin Sodium 5 Mg Tablet 5 Mg PO DAILY Warfarin Sodium 7.5 Mg Tablet 7.5 Mg PO QTU Warfarin Sodium 5 Mg Tablet 5 Mg PO DAILY TAKES M,W,TH,FR, VERDUGO Warfarin Sodium 7.5 Mg Tablet 7.5 Mg PO QSA Furosemide 40 Mg Tablet 1 Tab PO DAILY Vitamin B-12 (Cyanocobalamin (Vitamin B-12)) 100 Mcg Tablet 100 Mcg PO Aspir 81 (Aspirin) 81 Mg Tablet.dr 81 Mg PO DAILY Lisinopril 20 Mg Tablet 20 Mg PO DAILY Labetalol Hcl 200 Mg Tablet 200 Mg PO BID Lovastatin 40 Mg Tablet 40 Mg PO BID Vital Signs Vital Signs Date Time Temp Pulse Resp B/P (MAP) Pulse Ox O2 Delivery O2 Flow Rate FiO2 11/30/18 10:49 98.4 60 22 115/59 (77) 96 Room Air 98.4 11/30/18 08:00 2.0 Labs Laboratory Tests Test 11/28/18 17:14 11/28/18 20:54 11/29/18 04:00 11/29/18 07:20 Glucose (Fingerstick) 166 mg/dL (70-99) 218 mg/dL (70-99) 158 mg/dL (70-99) White Blood Count 8.0 x10^3/uL (4.0-11.0) Red Blood Count 3.11 x10^6/uL (4.30-5.70) Hemoglobin 10.2 g/dL (13.0-17.5) Hematocrit 30.3 % (39.0-53.0) Mean Corpuscular Volume 98 fL (79-100) Mean Corpuscular Hemoglobin 33 pg (25-35) Mean Corpuscular Hemoglobin Concent 34 g/dL (31-37) Red Cell Distribution Width 13.5 % (11.5-14.5) Platelet Count 100 x10^3/uL (140-400) Neutrophils (%) (Auto) 80 % (31-73) Lymphocytes (%) (Auto) 10 % (24-48) Monocytes (%) (Auto) 7 % (0-9) Eosinophils (%) (Auto) 3 % (0-3) Basophils (%) (Auto) 0 % (0-3) Neutrophils # (Auto) 6.4 x10^3uL (1.8-7.7) Lymphocytes # (Auto) 0.8 x10^3/uL (1.0-4.8) Monocytes # (Auto) 0.6 x10^3/uL (0.0-1.1) Eosinophils # (Auto) 0.2 x10^3/uL (0.0-0.7) Basophils # (Auto) 0.0 x10^3/uL (0.0-0.2) Prothrombin Time 18.6 SEC (11.7-14.0) Prothromb Time International Ratio 1.6 (0.8-1.1) Sodium Level 139 mmol/L (136-145) Potassium Level 3.5 mmol/L (3.5-5.1) Chloride Level 104 mmol/L (98-107) Carbon Dioxide Level 28 mmol/L (21-32) Anion Gap 7 (6-14) Blood Urea Nitrogen 20 mg/dL (8-26) Creatinine 0.9 mg/dL (0.7-1.3) Estimated GFR (Cockcroft-Gault) 81.2 Glucose Level 148 mg/dL (70-99) Calcium Level 8.3 mg/dL (8.5-10.1) Test 11/29/18 09:20 11/29/18 10:50 11/29/18 16:42 11/29/18 21:23 Vancomycin Level Trough 8.8 mcg/mL (10.0-20.0) Vancomycin Last Dose Date 11/28/18 Vancomycin Last Dose Time 1000 Glucose (Fingerstick) 170 mg/dL (70-99) 141 mg/dL (70-99) 179 mg/dL (70-99) Test 11/30/18 05:00 11/30/18 07:22 11/30/18 11:55 White Blood Count 6.4 x10^3/uL (4.0-11.0) Red Blood Count 3.13 x10^6/uL (4.30-5.70) Hemoglobin 10.1 g/dL (13.0-17.5) Hematocrit 30.3 % (39.0-53.0) Mean Corpuscular Volume 97 fL (79-100) Mean Corpuscular Hemoglobin 32 pg (25-35) Mean Corpuscular Hemoglobin Concent 33 g/dL (31-37) Red Cell Distribution Width 13.4 % (11.5-14.5) Platelet Count 90 x10^3/uL (140-400) Neutrophils (%) (Auto) 78 % (31-73) Lymphocytes (%) (Auto) 11 % (24-48) Monocytes (%) (Auto) 8 % (0-9) Eosinophils (%) (Auto) 3 % (0-3) Basophils (%) (Auto) 0 % (0-3) Neutrophils # (Auto) 5.0 x10^3uL (1.8-7.7) Lymphocytes # (Auto) 0.7 x10^3/uL (1.0-4.8) Monocytes # (Auto) 0.5 x10^3/uL (0.0-1.1) Eosinophils # (Auto) 0.2 x10^3/uL (0.0-0.7) Basophils # (Auto) 0.0 x10^3/uL (0.0-0.2) Prothrombin Time 20.2 SEC (11.7-14.0) Prothromb Time International Ratio 1.8 (0.8-1.1) Glucose (Fingerstick) 140 mg/dL (70-99) 161 mg/dL (70-99) Laboratory Tests Test 11/29/18 16:42 11/29/18 21:23 11/30/18 05:00 11/30/18 07:22 Glucose (Fingerstick) 141 mg/dL (70-99) 179 mg/dL (70-99) 140 mg/dL (70-99) White Blood Count 6.4 x10^3/uL (4.0-11.0) Red Blood Count 3.13 x10^6/uL (4.30-5.70) Hemoglobin 10.1 g/dL (13.0-17.5) Hematocrit 30.3 % (39.0-53.0) Mean Corpuscular Volume 97 fL (79-100) Mean Corpuscular Hemoglobin 32 pg (25-35) Mean Corpuscular Hemoglobin Concent 33 g/dL (31-37) Red Cell Distribution Width 13.4 % (11.5-14.5) Platelet Count 90 x10^3/uL (140-400) Neutrophils (%) (Auto) 78 % (31-73) Lymphocytes (%) (Auto) 11 % (24-48) Monocytes (%) (Auto) 8 % (0-9) Eosinophils (%) (Auto) 3 % (0-3) Basophils (%) (Auto) 0 % (0-3) Neutrophils # (Auto) 5.0 x10^3uL (1.8-7.7) Lymphocytes # (Auto) 0.7 x10^3/uL (1.0-4.8) Monocytes # (Auto) 0.5 x10^3/uL (0.0-1.1) Eosinophils # (Auto) 0.2 x10^3/uL (0.0-0.7) Basophils # (Auto) 0.0 x10^3/uL (0.0-0.2) Prothrombin Time 20.2 SEC (11.7-14.0) Prothromb Time International Ratio 1.8 (0.8-1.1) Test 11/30/18 11:55 Glucose (Fingerstick) 161 mg/dL (70-99) Allergies Allergies Coded Allergies Type Severity Reaction Last Updated Verified Antihistamines - Alkylamine Allergy Intermediate 12/06/17 Yes Penicillins Allergy Intermediate Hives 09/11/15 Yes Disposition/Orders: D/C to Home Patient Instructions d/c planning 38 min GLENN BHANDARI MD Nov 30, 2018 14:56
[2018-11-30] MEDS ORDERED: LACT1CAP19 PO (14:58)
[2018-11-30] MEDS ORDERED: CEFD300C PO (14:58)
--- NOTE | 2018-11-30 14:59 | DISCH ---
DISCHARGE INSTRUCTIONS Condition on Discharge Condition on Discharge: Stable Activity After Discharge Activity Instructions for Disc: Activity as tolerated Lifting Instructions after Dis: No heavy lifting Exercise Instruction after Dis: Walk 10 min, 3 x per day, Progress as tolerated Driving Instructions after Dis: Do not drive today Weight Bearing Status after Di: As tolerated Diet after Discharge Diet after Discharge: Diabetic No Calorie Level Diet Texture: Regular Liquid Texture: Thin Liquid Swallowing Supervision: None needed Wound Incision Care Wound/Incision Care: No wound care needed Checks after Discharge Checks after discharge: Check blood press - daily, Check blood sugar, ac/hs Contacting the DR. after DC Call your doctor for: If your condition worsens Treatment/Equipment after DC Adaptive Equipment Issued: None GLENN BHANDARI MD Nov 30, 2018 14:59
[2018-11-30] MEDS ORDERED: WARFARIN 5 MG TABLET. PO ONE (16:00)
== END 2018-11-30 14:20 | disposition home or self-care (01) | DRG 872 ==
LOC: ER 08:24 → 6 SOUTH 10:08
PROVIDERS: ADMIT Internal Medicine; ATTEND Internal Medicine
DX: A41.9 Sepsis, unspecified organism (principal); L03.115 Cellulitis of right lower limb; E87.2 Acidosis; J44.1 Chronic obstructive pulmonary disease with (acute) exacerbation; I50.42 Chronic combined systolic (congestive) and diastolic (congestive) heart failure; I24.8 Other forms of acute ischemic heart disease; E11.51 Type 2 diabetes mellitus with diabetic peripheral angiopathy without gangrene; I11.0 Hypertensive heart disease with heart failure; E66.9 Obesity, unspecified; G93.89 Other specified disorders of brain; H92.01 Otalgia, right ear; E78.5 Hyperlipidemia, unspecified; I48.0 Paroxysmal atrial fibrillation; I25.10 Atherosclerotic heart disease of native coronary artery without angina pectoris; M19.90 Unspecified osteoarthritis, unspecified site; E78.00 Pure hypercholesterolemia, unspecified; Z68.35 Body mass index [BMI] 35.0-35.9, adult; Z88.8 Allergy status to other drugs, medicaments and biological substances; Z88.0 Allergy status to penicillin; Z95.1 Presence of aortocoronary bypass graft; Z79.01 Long term (current) use of anticoagulants; Z87.01 Personal history of pneumonia (recurrent); Z95.0 Presence of cardiac pacemaker; Z82.49 Family history of ischemic heart disease and other diseases of the circulatory system
CPT/HCPCS: 36415; 71045; 71250; 80048; 80053; 80202; 81001; 82553; 82962; 83036; 83605; 83880; 84484; 85007; 85025; 85610; 85730; 87040; 87804; 93005; 93970; 96365; J3370; J7030; J7040; 99285-25

== ENCOUNTER → 2020-07-09 | Outpatient (CLI) | payer MEDICARE ==
[~2020-07-09] MED LIST changes: +CEFD300C PO; -CYAN100T2 PO; +CYAN100T21 PO; +LACT1CAP19 PO
--- NOTE | 2020-07-09 10:19 | CARD ---
MR#: [id number] Date of Study: 07/09/2020 Ordering Physician: HARMONY LAU, Referring Physician: HARMONY LAU, Tech: Amaya Escalera [facility] APPROVED REPORT EXAM: Two-dimensional and M-mode echocardiogram with Doppler and color Doppler. Other Information Quality : Fair INDICATION Cardiac Disease: CAD Hx: Two CABG's, ICD/Pacemaker 2D DIMENSIONS RVDd2.7 (2.9-3.5cm)Left Atrium(2D)4.6 (1.6-4.0cm) IVSd1.4 (0.7-1.1cm)Aortic Root(2D)3.2 (2.0-3.7cm) LVDd6.3 (3.9-5.9cm)LVOT Diameter2.2 (1.8-2.4cm) PWd1.5 (0.7-1.1cm)LVDs4.9 (2.5-4.0cm) FS (%) 23.4 %SV93.9 ml LVEF(%)45.9 (>50%) Aortic Valve AoV Peak [place].115.1cm/sAoV VTI20.8cm AO Peak GR.5.3mmHgLVOT Peak [place].89.9cm/s AO Mean GR.2mmHgAVA (VMAX)3.00cm2 CALVIN (VTI)3.20cm2 Mitral Valve MV E Dmbbsmrl159.1cm/sMV DECEL PBIO296wh MV A Brmnzano37.7cm/sE/A Ratio4.1 Tricuspid Valve TR P. Geutvxam356ms/sRAP MDKHAXOS3dsIq TR Peak Gr.88mtJvUAFK34ckFi LEFT VENTRICLE The Left Ventricle is mildly dilated. There is mild concentric left ventricular hypertrophy. Severe h ypokinesis of mid to distal anteroseptal wall and mid to distal inferior wall. The Ejection Fraction is 40-45%. Apical motion consistent with pacemaker activation. Tissue Doppler imaging reveals moderat e left ventricular diastolic dysfunction. RIGHT VENTRICLE The right ventricle is mildly dilated. The right ventricular systolic function is normal. There is a pacemaker lead in the right ventricle. ATRIA The left atrium is mildly dilated. The right atrium is mildly dilated. A pacemaker is seen in the rig ht atrium consistent with history. The interatrial septum is intact with no evidence for an atrial se ptal defect or patent foramen ovale as noted on 2-D or Doppler imaging. AORTIC VALVE The aortic valve is calcified but opens well. Doppler and Color Flow revealed no significant aortic r egurgitation. There is no significant aortic valvular stenosis. MITRAL VALVE The mitral valve is calcified but opens well. Mitral annular calcification is mild. There is no evide nce of mitral valve prolapse. There is no mitral valve stenosis. Doppler and Color Flow revealed no m itral valve regurgitation noted. TRICUSPID VALVE The tricuspid valve is normal in structure and function. Doppler and Color Flow revealed trace tricus pid regurgitation. There is mild pulmonary hypertension. The PA pressure was estimated at 36 mmHg. Th ere is no tricuspid valve stenosis. PULMONIC VALVE The pulmonic valve is not well visualized. Doppler and Color Flow revealed no pulmonic valvular regur gitation. There is no pulmonic valvular stenosis. GREAT VESSELS The aortic root is normal in size. The ascending aorta is not well seen. The IVC is normal in size an d collapses >50% with inspiration. PERICARDIAL EFFUSION There is no evidence of significant pericardial effusion. Critical Notification Critical Value: No <Conclusion> Severe hypokinesis of mid to distal anteroseptal wall and mid to distal inferior wall. The Ejection Fraction is 40-45%. Pacer lead noted RA/RV. Trace tricuspid regurgitation. The PA pressure was estimated at 36 mmHg. There is no evidence of significant pericardial effusion. Signed by : Gumaro Joseph, Electronically Approved : 07/09/2020 10:19:09
== END | disposition home or self-care (01) ==
LOC: ECHO 07:39
PROVIDERS: ATTEND Internal Medicine Cardiovascular Disease
DX: I08.0 Rheumatic disorders of both mitral and aortic valves (principal); I25.10 Atherosclerotic heart disease of native coronary artery without angina pectoris; I27.20 Pulmonary hypertension, unspecified
CPT/HCPCS: 93306

== ENCOUNTER → 2021-05-23 | Outpatient (CLI) | payer MEDICARE ==
[~2021-05-23] MED LIST changes: -LISI-334 PO; +LISI20TA18 PO; +REGADENOSON 0.4 MG/5 ML DISP.SYRIN. IV ONE
--- NOTE | 2021-05-26 15:05 | RAD ---
MR#: [id number] Date of Study: 05/23/2021 Ordering Physician: HARMONY KELLY, Referring Physician: ZAC PORTER Tech: VARUN Zuluaga APPROVED REPORT Test Type: Pharmacological Stress Nurse/Tech: JACKY SADLER Test Indications: CAD Cardiac History: CAD, CABG, HTN, PPM- SEE EMR Medications: SEE EMR Medical History: SEE EMR Resting ECG: TACHYCARDIC- VPACED Resting Heart Rate: 117 bpm Resting Blood Pressure: 115/76mmHg Pretest Chest Pain: No chest pain Nurse/Tech Notes HEART RATE TACHY, BP WNL, DENIED CHEST PAIN OR SHORTNESS OF BREATH. Consent: The procedure was explained to the patient in lay terms. Informed consent was witnessed. Baltazar eout was entered into [employer]. History and Stress Test performed by RT Willis (R) (N) Pharm. Details Pharmacologic stress testing was performed using 0.4mg per 5ml of regadenoson given intravenously ove r 7-10 seconds. Stress Symptoms PT HAD A BRIEF EPISODE OF SHORTNESS OF BREATH, NO OTHER SYMPTOMS, VITALS REMAINED ESSENTIALLY UNCHANG ED. NO COMPLAINTS. RN ENCOURAGED PATIENT TO GO HOME AND TAKE HIS MORNING MEDS, INCLUDING HIS LABETALO L 200MG SINCE HIS HEART RATE WAS ELEVATED. PT CONTINUED TO BE TACHYCARDIC, EVEN AFTER HE STATED HE TO OK HIS HOME MEDICATIONS. DR. KELLY NOTIFIED. POST EXERCISE Reason for Termination: Infusion complete Max HR: 123 bpm Max Blood Pressure: 121/67mmHg Blood Pressure response to exercise: Normal blood pressure response during stress. Heart Rate response to exercise: WNL Chest Pain: No. Arrhythmia: No. EKG ESSENTIALLY UNCHANGED FROM BASELINE- V PACED ST Change: No. INTERPRETATION Stress EKG Conclusion: Non diagnostic due to pacing. Imaging Protocol IMAGE PROTOCOL: Rest Tc-99m/stress Tc-99m 1 day Rest: Stress: Viability: Radiopharm.Tc99m SkpznxcihWn12k Sestamibi Znml07tXj 33mCi Duration 15min. 10min. Img Date 05/23/2021 05/23/2021 Inj-Img Asxu33pui. 60min. Rest Admin Site:IV - Left AntecubitalAdministrator:VARUN Zuluaga Stress Admin Site: IV - Left AntecubitalAdministrator: Dwaine Villalobos, RT (R)(N) STRESS DATA End Diast. Vol.167.0mlAv. Heart Dhrz463.0bpm End Syst. Vol.127.0mlCO Index BSA0.0L/min Myocardial Kfjx202.0gEject. Obofjpmu74.0% Stress Rates Pk. Fill Rate2.75EDV/secLVtime Pk. Fill 148.26msec Pk. Empty Rate1.69ESV/secLVtime Pk. Uhdpr397.52msec 10/06 Pk. Fill0.05EDV/sec Stress Scores Regional WT1.00Summed WT39.00 Regional WM0.00Summed WM32.00 LV Perfusion There is a large basal to distal inferior wall and mid to distal anteroseptal and apical wall fixed d efect consistent with prior infarct in a large RCA territory distribution. Wall Motion Severe LV dysfunction with ejection fraction of 24% LV Perf. Quant 17 Seg. SSS18.00 17 Seg. SRS17.00 17 Seg. SDS1.00 Stress Defect Extent (% LAD)40.60Rest Defect Extent (% LAD)39.40Rev. Defect Extent (% LAD)22.50 Stress Defect Extent (% LCX) 23.80Rest Defect Extent (% LCX)20.00Rev. Defect Extent (% LCX)13.80 Stress Defect Extent (% RCA)24.40Rest Defect Extent (% RCA)37.80Rev. Defect Extent (% RCA)0.00 Stress Defect Extent (% STUART)36.30Rest Defect Extent (% STUART)38.70Rev. Defect Extent (% STUART)15.70 Other Information Quality:Fair Risk Assessment: High Risk Conclusion 1. Nondiagnostic EKG due to pacing 2. Large fixed inferior and apical defect as noted consistent with infarct without active ischemia 3. Severe LV dysfunction, EF 25% 4. High risk for future cardiovascular events Signed by : Harmony Kelly, Electronically Approved : 05/26/2021 15:04:46
== END ==
LOC: NM 09:36
PROVIDERS: ATTEND Internal Medicine Cardiovascular Disease
DX: I51.9 Heart disease, unspecified (principal); I25.10 Atherosclerotic heart disease of native coronary artery without angina pectoris
CPT/HCPCS: 78452; 93017; A9500; J2785

== ENCOUNTER 2021-06-12 11:34 | Day surgery (SDC) | payer MEDICARE ==
[~2021-06-12] VITALS: Ht 172.7 cm; Wt 99.0 kg
[~2021-06-12 11:34] MED LIST changes: +CHOL5000 PO; +IV RINGERS,LACTATED 1000ML 1,000 ML IV SCH; +LIDOCAINE 2% VISCOUS 15 ML SOLUTION. SWSW ONE; +METO50TA6 PO; +MULT-496 PO; -REGADENOSON 0.4 MG/5 ML DISP.SYRIN. IV ONE
[2021-06-12] MEDS ORDERED: BENZOCAINE ONE 20% MUCOSAL SPRAY. MM (11:45)
[2021-06-12] MEDS ORDERED: LIDOCAINE 2% TOPICAL JELLY 30GM TUBE. TP ONE (11:45)
[2021-06-12 12:12] VITALS: BP 133/81
--- NOTE | 2021-06-12 12:18 | EKG ---
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
[2021-06-12] MEDS ORDERED: INSULIN LISPRO 100 UNIT/ML 3ML VIAL for OP,RR ONLY. SQ PRN (12:30)
[2021-06-12 12:39] LABS: CALCIUM 8.9 mg/dL (8.5-10.1); CREATININE 1.3 mg/dL (0.7-1.3); GFR 52.7; MAGNESIUM 2.1 mg/dL (1.8-2.4); POTASSIUM 4.4 mmol/L (3.5-5.1)
[2021-06-12] MEDS ORDERED: LIDOCAINE 2% PF 5 ML VIAL. ONE (13:05)
[2021-06-12] MEDS ORDERED: PROPOFOL 10 MG/ML (20ML) VIAL. IV ONE (13:05)
[2021-06-12] MEDS ORDERED: AMIODARONE 150 MG/3 ML VIAL ONE (13:26)
[2021-06-12] MEDS ORDERED: PHENYLEPHRINE in 0.9% NACL PF 1 MG/10 ML SYRINGE. IV ONE (13:30)
[2021-06-12] MEDS ORDERED: METOPROLOL IV PUSH 5 MG/5 ML VIAL. IVP ONE (14:13)
[2021-06-12] MEDS ORDERED: METOPROLOL IV PUSH 5 MG/5 ML VIAL. IVP SCH (14:30)
[2021-06-12 14:42] VITALS: BP 120/79
[2021-06-12] MEDS ORDERED: AMIO200T6 PO (14:50)
--- NOTE | 2021-06-13 17:06 | CARD ---
MR#: [id number] Date of Study: 06/12/2021 Ordering Physician: HARMONY KELLY, Referring Physician: HARMONY KELLY, Tech: Lary Butler [facility] APPROVED REPORT EXAM: Transesophageal echocardiogram with color flow Doppler and Synchronized Cardioversion. INDICATION COPD Atrial Fibrillation Congestive Heart Failure Surgery/Intervention Pacemaker: Reason For Test : Rule out cardiac source of emboli. PROCEDURE After obtaining informed consent, patient underwent transesophageal echo in the PACU. Type of Sedation : General Anesthesia Sedation was administered by Mary Rushing. Sedation was achieved with Propofol 150mg intravenously. Sedation was achieved with Lidocaine 20mg intravenously. Transesophageal probe was inserted and advanced into esophagus by Jonathan Kelly MD. The MELODY was performed without complications. Synchronized Cardioversion attempted: Unsuccessful Rhythm following Synchronized Cardioversion: Atrial tachycardia. Throughout the procedure, the blood pressure, pulse oximetry, cardiac rhythm, and rate were monitored . The patient tolerated the procedure without adverse effects. Recovery from general anesthesia was une ventful and vital signs were stable. LEFT VENTRICLE The left ventricle is normal size. There is mild to moderate concentric left ventricular hypertrophy. The systolic function is severely impaired. The Ejection Fraction is 20%. There is severe global hyp okinesis of the left ventricle. No left ventricle thrombus noted on this study. RIGHT VENTRICLE The right ventricle is borderline dilated. There is normal right ventricular wall thickness. The righ t ventricular systolic function is normal. ATRIA The left atrium is mildly dilated. There is a pacemaker lead seen in the right atrium. The interatria l septum is intact with no evidence for an atrial septal defect or patent foramen ovale as noted on 2 -D or Doppler imaging. There is no thrombus noted in the left atrial appendage. AORTIC VALVE The aortic valve is mildly thickened but opens well. Doppler and Color Flow revealed trace aortic reg urgitation. There is no aortic valvular vegetation. MITRAL VALVE The mitral valve is normal in structure and function. There is no mitral valve stenosis. Doppler and Color-flow revealed mild mitral regurgitation. TRICUSPID VALVE The tricuspid valve is normal in structure and function. Doppler and Color Flow revealed no tricuspid valve regurgitation noted. There is no tricuspid valve stenosis. PULMONIC VALVE The pulmonic valve is not well visualized. GREAT VESSELS The aortic root is normal in size. The IVC is normal in size and collapses >50% with inspiration. Critical Notification Critical Value: No <Conclusion> The systolic function is severely impaired. The Ejection Fraction is 20%. There is severe global hypokinesis of the left ventricle. There is no thrombus noted in the left atrial appendage. Unsuccessful CVN to SR. Based on intracardiac EGM, surface EKG, response to cardioversion and thresho ld testing, it appears patient is in a persistent atrial tachycardia. Plan for initiation of amiodarone therapy and repeat in office pacer evaluation. Continue GDMT for HF Discussed with family. Signed by : Harmony Kelly, Electronically Approved : 06/13/2021 17:06:02
== END 2021-06-12 15:17 | disposition home or self-care (01) ==
LOC: SURG 11:34
PROVIDERS: ATTEND Internal Medicine Cardiovascular Disease
DX: I48.91 Unspecified atrial fibrillation (principal); I08.0 Rheumatic disorders of both mitral and aortic valves; I10 Essential (primary) hypertension; E78.00 Pure hypercholesterolemia, unspecified; I25.2 Old myocardial infarction; E11.9 Type 2 diabetes mellitus without complications; M10.9 Gout, unspecified; M19.90 Unspecified osteoarthritis, unspecified site; Z87.442 Personal history of urinary calculi; Z79.899 Other long term (current) drug therapy; Z95.0 Presence of cardiac pacemaker; Z98.890 Other specified postprocedural states
CPT/HCPCS: 36415; 80048; 82962; 83735; 92960; 93005; 93312; 93325; J0282; J2370; J2704; J3490

== ENCOUNTER 2021-12-09 11:32 | Day surgery (SDC) | payer MEDICARE ==
[~2021-12-09] VITALS: Ht 172.7 cm; Wt 98.0 kg
[~2021-12-09 11:32] MED LIST changes: +AMIO200T53 PO; +APIX2.5T PO; +BENZOCAINE ONE 20% MUCOSAL SPRAY. MM; +HYDROmorphone 2 MG/ML INJ. IVP PRN; +LIDOCAINE 2% TOPICAL JELLY 30GM TUBE. TP ONE; +MORPHINE SULFATE 2 MG/ML INJ. IVP PRN; +PROCHLORPERAZINE 10 MG/2 ML VIAL. IVP PRN; +fentaNYL PF VIAL 100 MCG/2 ML VIAL IVP PRN
[2021-12-09 12:20] VITALS: BP 109/68
--- NOTE | 2021-12-09 12:20 | EKG ---
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
[2021-12-09 12:33] LABS: CALCIUM 9.7 mg/dL (8.5-10.1); CREATININE 1.4 mg/dL (0.7-1.3); GFR 48.4; POTASSIUM 4.2 mmol/L (3.5-5.1)
[2021-12-09 12:35] LABS: MAGNESIUM 2.2 mg/dL (1.8-2.4)
[2021-12-09] MEDS ORDERED: PROPOFOL 10 MG/ML (20ML) VIAL. IV ONE (13:33)
[2021-12-09 14:23] VITALS: BP 139/82
--- NOTE | 2021-12-09 15:06 | CARD ---
MR#: [id number] Date of Study: 12/09/2021 Ordering Physician: HARMONY LAU, Referring Physician: HRAMONY LAU, Tech: Lesa Vann [facility] APPROVED REPORT EXAM: Transesophageal echocardiogram with color flow Doppler. RISK FACTORS Hypertension Hyperlipidemia Reason For Test : Rule out Intracardiac Thrombus. PROCEDURE After obtaining informed consent, patient underwent transesophageal echo in the PACU. Type of Sedation : General Anesthesia Sedation was administered by Anet[employer]. Sedation was achieved with Propofol 120 mg intravenously. Transesophageal probe was inserted and advanced into esophagus by Jonathan Lau MD. The MELODY was performed without complications. Throughout the procedure, the blood pressure, pulse oximetry, cardiac rhythm, and rate were monitored . The patient tolerated the procedure without adverse effects. Recovery from general anesthesia was une ventful and vital signs were stable. LEFT VENTRICLE The left ventricle is normal size. There is borderline concentric left ventricular hypertrophy. The s ystolic function is mildly impaired. Estimated ejection fraction 40-45%. There is mild global hypokin esis with septal motion suggestive of conduction defect. Tissue Doppler imaging reveals moderate left ventricular diastolic dysfunction. No left ventricle thrombus noted on this study. There is no ventr icular septal defect visualized. There is no left ventricular aneurysm. There is no mass noted in the left ventricle. RIGHT VENTRICLE The right ventricle is mildly to moderately dilated. There is normal right ventricular wall thickness . The right ventricular systolic function is normal. ATRIA The left atrium is moderately dilated. The right atrium is moderately dilated. The interatrial septum is intact with no evidence for an atrial septal defect or patent foramen ovale as noted on 2-D or Do ppler imaging. There is no thrombus noted in the left atrial appendage. AORTIC VALVE The aortic valve is normal in structure and function. Doppler and Color Flow revealed no significant aortic regurgitation. There is no significant aortic valvular stenosis. MITRAL VALVE The mitral valve is grossly normal in structure. There is no evidence of mitral valve prolapse. There is no mitral valve stenosis. Doppler and Color-flow revealed mild to moderate mitral regurgitation. TRICUSPID VALVE The tricuspid valve is normal in structure and function. Doppler and Color Flow revealed trace tricus pid regurgitation. There is no tricuspid valve stenosis. PULMONIC VALVE Not well visualized GREAT VESSELS The aortic root is normal in size. The IVC is normal in size and collapses >50% with inspiration. Critical Notification Critical Value: No <Conclusion> The systolic function is mildly impaired. Estimated ejection fraction 40-45%. There is mild global hypokinesis with septal motion suggestive of conduction defect. The right ventricle is mildly to moderately dilated. There is no thrombus noted in the left atrial appendage. Doppler and Color-flow revealed mild to moderate mitral regurgitation. Moderate biatrial enlargement. Signed by : Harmony Lau, Electronically Approved : 12/09/2021 15:05:44
== END 2021-12-09 14:34 | disposition home or self-care (01) ==
LOC: SURG 11:32
PROVIDERS: ATTEND Internal Medicine Cardiovascular Disease
DX: I34.0 Nonrheumatic mitral (valve) insufficiency (principal); I48.0 Paroxysmal atrial fibrillation; I11.0 Hypertensive heart disease with heart failure; I50.9 Heart failure, unspecified; E78.00 Pure hypercholesterolemia, unspecified; E11.9 Type 2 diabetes mellitus without complications; E66.9 Obesity, unspecified; G47.30 Sleep apnea, unspecified; M10.9 Gout, unspecified; M19.90 Unspecified osteoarthritis, unspecified site; Z87.891 Personal history of nicotine dependence; Z79.82 Long term (current) use of aspirin; Z79.84 Long term (current) use of oral hypoglycemic drugs; Z79.899 Other long term (current) drug therapy; Z98.890 Other specified postprocedural states; Z82.49 Family history of ischemic heart disease and other diseases of the circulatory system; Z83.3 Family history of diabetes mellitus; Z88.0 Allergy status to penicillin; Z88.1 Allergy status to other antibiotic agents
CPT/HCPCS: 36415; 80048; 82962; 83735; 93005; 93312; 93325; J2704